=== PATIENT | male | born 1970 | race Two or more races ===

== ENCOUNTER → 2021-01-11 12:59 | Outpatient (BNVA) | payer MEDICAID, SELFPAY | PROVIDERS: PCP Internal Medicine; Referring Provider Internal Medicine; Visit Provider Nurse Practitioner | DX: K76.9 Liver disease, unspecified (principal) | CPT/HCPCS: 99202 ==

== ENCOUNTER 2021-01-25 08:43 | Day surgery (SDC) | payer OTHER, SELFPAY ==
--- NOTE | ~2021-01-25 | US_ITS ---
EXAMINATION: US GUIDED LIVER BIOPSY CLINICAL INFORMATION: Hepatomegaly and multiple liver masses. COMPARISON: None TECHNIQUE: Following explaining ultrasound-guided liver biopsy procedure, benefits and risk, a written consent was obtained. Patient was placed supine on ultrasound stretcher and preliminary ultrasound imaging was obtained through the right upper abdomen. An optimal site was selected along the right subcostal margin anteriorly and marked on the skin. The marked site was cleaned and draped in the usual sterile manner. 1% lidocaine was injected at the puncture site. Through a small skin incision, a 20-gauge guide needle was advanced into the right hepatic lobe subcostally from midline to the right hepatic lobe and 4 pass coaxial Biopty gun was advanced and core biopsy performed through the larger right hepatic lobe lesion. A second small incision was performed slightly laterally and a 2 pass biopsy was performed through a second smaller lesion. Postprocedure, complete hemostasis was achieved at the puncture site. A sterile dressing was applied postprocedure. Conscious sedation was utilized during the exam with patient monitoring by our nurse and the radiologist. FINDINGS: On preliminary ultrasound imaging of the liver, there are multiple hypoechoic nodules visualized. Right hepatic lobe lesions biopsy was performed and tissue collected was sent in an alcohol collection bottle to pathology for further evaluation. There was no immediate bleeding. US/US biopsy liver IMPRESSION: Successful ultrasound-guided right hepatic lobe nodule core biopsy performed subcostally without immediate complications.
[2021-01-25 08:54] VITALS: BMI 30.2
[2021-01-25 12:15] VITALS: BP 121/71; PULSE 74; RESP 16; TEMP 37.7; O2SAT 94
[2021-01-25 12:30] VITALS: BP 120/67; PULSE 66; RESP 18; O2SAT 96
[2021-01-25 13:00] VITALS: BP 106/59; PULSE 66; RESP 18; O2SAT 96
[2021-01-25] MEDS: Lidocaine HCl 1 % MPF 5 ML VIAL 4 ML SUBCUT (13:10)
[2021-01-25 13:30] VITALS: BP 128/83; PULSE 71; RESP 18; O2SAT 98
[2021-01-25 14:30] VITALS: BP 113/65; PULSE 83; RESP 18; O2SAT 98
== END 2021-01-25 14:57 | disposition home or self-care (01) ==
PROVIDERS: Radiology Diagnostic Radiology; PCP Internal Medicine; Visit Provider Internal Medicine
DX: C22.7 Other specified carcinomas of liver (principal); R16.0 Hepatomegaly, not elsewhere classified; I10 Essential (primary) hypertension; R91.1 Solitary pulmonary nodule
CPT/HCPCS: 47000; 76942; 88307; 88341; 88342; 99152; 99153; J2250; J3010

== ENCOUNTER 2021-02-10 08:10 | Day surgery (SDC) | payer OTHER, SELFPAY ==
[2021-02-03 13:41] VITALS: BMI 30.2
--- NOTE | 2021-02-09 10:25 | P.CONAN_ITS ---
Documented by User: Joseline Meza NP 02/09/21 10:25 HPI - Anesthesia Eval Consult details Narrative: 50yo M for Upper Endoscopy and Colonoscopy PMFSH Active Problems Active Problems: All Active Problems (Updated 01/17/21 @ 17:36 by Maxi Berkowtiz MD) Lesion of liver (Acute) Past Medical History Medical History Hypertension Left arm pain Liver masses Pulmonary nodule Surgical History Surgical History History of colonoscopy History of liver biopsy Social History Social History Are you a primary healthcare associate to a significant other at home: No Do you presently have visiting nurse or other home services: No Alcohol intake: never Patient Tobacco Use Status: Never used Tobacco Use of substances other than those prescribed or required for medical reasons: No Have you been hit, kicked, punched, or otherwise hurt by someone within the past year? If so, by whom?: No Are you DNR?: No Advance Directives: No Advance Directives Information Provided: No Advance Directives on File: No Recently lost weight without trying: Yes How much weight loss: 2-13 pounds Eating poorly because of decreased appetite: No Nutrition screen score: 3 Nutrition Risks: No Nutritional Risk Meds Allergies Allergy/AdvReac Type Severity Reaction Status Date / Time bee pollen [bee stings] Allergy Unknown Verified 02/03/21 13:41 Home Medications Medication Instructions Recorded Confirmed Last Taken Type acetaminophen 500 mg tablet 250 mg PO PRN 01/25/21 Unknown History hydrochlorothiazide 25 mg tablet 1 tab PO DAILY 01/25/21 02/03/21 01/25/21 05:30 History lisinopril 5 mg tablet 2 tab PO DAILY 01/25/21 02/03/21 01/25/21 05:30 History Exam Exam Date and Time: February 09, 2021 1025 Height,Weight and Vital Signs: Height 5 ft 10 in Weight 95.7 kg Pertinent Lab Results Pertinent Lab Results: Laboratory Tests 01/20/21 01/20/21 08:56 08:56 WBC 7.6 Hgb 12.7 L Hct 41.8 L Plt Count 260 Sodium 141 Potassium 4.3 Chloride 105 Carbon Dioxide 28 BUN 14 Creatinine 0.80 Assessment and Plan Assessment Anesthesia Assessment: Chart Reviewed Documented by User: Ira Franco MD 02/10/21 08:47 [facility] Past Medical History Medical History Hypertension Left arm pain Liver masses Pulmonary nodule Family History Family history of problems with anesthesia: No Surgical History Surgical History History of colonoscopy History of liver biopsy History of Problems with Anesthesia: No Social History Social History Are you a primary healthcare associate to a significant other at home: No Do you presently have visiting nurse or other home services: No Alcohol intake: never Patient Tobacco Use Status: Never used Tobacco Use of substances other than those prescribed or required for medical reasons: No Have you been hit, kicked, punched, or otherwise hurt by someone within the past year? If so, by whom?: No Are you DNR?: No Advance Directives: No Advance Directives Information Provided: No Advance Directives on File: No Recently lost weight without trying: Yes How much weight loss: 2-13 pounds Eating poorly because of decreased appetite: No Nutrition screen score: 3 Nutrition Risks: No Nutritional Risk Meds Allergies Allergy/AdvReac Type Severity Reaction Status Date / Time bee pollen [bee stings] Allergy Unknown Verified 02/03/21 13:41 Home Medications Medication Instructions Recorded Confirmed Last Taken Type acetaminophen 500 mg tablet 250 mg PO PRN 01/25/21 Unknown History hydrochlorothiazide 25 mg tablet 1 tab PO DAILY 01/25/21 02/03/21 01/25/21 05:30 History lisinopril 5 mg tablet 2 tab PO DAILY 01/25/21 02/03/21 01/25/21 05:30 History Exam Airway Mallampati Class: II TM Dist: >3cm Neck ROM: Full Heart: RRR Lungs: CTA Assessment and Plan Final Anesthetic Review Family History of Problems with Anesthesia: No History of Problems with Anesthesia: No ASA Class: II Final Preanesthetic Review: No Changes in Pt Med Stat, Meds/Allgs Chart Reviewed, Consent Obtained/Reviewed and Anes Risks/Benef Reviewed Patient Risk: Low (M) Procedure Risk: Low Anesthetic Plan Anesthetic Plan: MAC: Disposition: Standard PACU
[2021-02-10 08:31] VITALS: BP 167/102; PULSE 91; RESP 16; TEMP 36.4; O2SAT 97
[2021-02-10] MEDS: Lactated Ringers 1,000 ML 100 ML IVCONT (08:40)
--- NOTE | 2021-02-10 08:41 | P.HPSUR_ITS ---
Pre-Procedural Eval Section A Date of Service: 02/10/21 Section B Chief Complaint: liver lesions looking for primary tumour Relevant Family History (Specify if Yes): No Relevant Social History: None Present Medications: see Short Stay Collaborative assessment Medical History: Significant History (Hypertension Left arm pain Liver masses Pulmonary nodule) History of Previous Operations: Relevant previous surgery/procedure and date(s) (History of colonoscopy History of liver biopsy) Allergies: Allergies Allergy/AdvReac Type Severity Reaction Status Date / Time bee pollen [bee stings] Allergy Unknown Verified 02/03/21 13:41 Review of Systems Sugical H&P ROS: Negative: Constitution, Cardiovascular, Respiratory, Neurological, Psychiatric, Hem-Onc, Allergic/Immunologic, Gastrointestinal, Genitourinary, Musculoskeletal, Integumentary, Endocrine and Eyes/Ear s/Nose/Throat Exam Surgical H&P Exam: Normal: HEENT, Normal: Heart, Normal: Lungs, Normal: Extremities, Normal: Abdomen, Normal: Skin and Normal: Neurological Plan Diagnosis/Plan: Unchanged I have reviewed the history and physical and performed a pertinent physical examination on my patient. No changes have occurred unless specified.
--- NOTE | 2021-02-10 08:45 | PM.OP ---
Brief Operative Note Date of Service: 02/10/21 Pre-op diagnosis: liver lesions looking for GI primary Post-op diagnosis: same Procedure: see op note Surgeon: Lexy Montes De Oca MD Anesthesia: MAC Was an House Furnishings Supervisor used for this Procedure?: No Estimated blood loss (mL): 0 Condition: stable Disposition: PACU
--- NOTE | 2021-02-10 08:46 | P.OP_ITS ---
Operative Note Operative Note Date of Service: 02/10/21 Narrative: Operative Information Procedure Description: EGD, Colonoscopy FLEXIBLE TRANSORAL UPPER GASTROINTESTINAL ENDOSCOPY AND COLONOSCOPY PROCEDURE NOTE UPPER ENDOSCOPY Consent: Indications for the procedure and potential complications of bleeding, perforation, reaction to medications and missed diagnosis were discussed with the patient and informed consent was obtained. Instrument: Olympus GIF H 190 J mid size upper endoscope Monitoring: Vital signs and clinical assessment, continuous EKG monitoring, Pulse oximetry, Carbon Dioxide monitoring and blood pressure monitoring were done throughout the procedure. Procedure: The patient was placed in the left lateral decubitis position and pre-procedure medications were administered and a bite block was placed. The endoscope was inserted into the mouth and advanced under direct vision to the third part of duodenum. A careful inspection was made as the upper endoscope was withdrawn including a retroflexed examination of the proximal stomach; Findings and interventions are described below. Findings: Larynx:normal Esophagus: GE junction at 40 cm, diaphragm hiatus at 40 cm, few nodular polypoid lesions 6-8 mm biopsies taken Stomach: Atrophic gastritis random stomach bx taken. At antrum there was a large polypoid lesion, the base of which was hard to establish, parts of it were snare excised with cold snare and it easily bled disturbing the view. The pylorus was also deformed. Grade 2 flap valve on retroflexed examination of the cardia. Hemospray was used due to bleeding. Duodenum: Proximal bulb close to the pyloric outlet there was a friable mass like lesion, soft, and this was biopsied, possibly an extension of the polypoid leison from the stomach above. Intervention: Biopsies as noted above, snare polpyectomy, hemospray COLONOSCOPY Instrument: Olympus variable stiffness pediatric scope 190L Colonoscopy Monitoring: Vital signs and clinical assessment, continuous EKG monitoring, Pulse oximetry, Carbon Dioxide monitoring and blood pressure monitoring were done throughout the procedure. Colon withdrawal time was 10 minutes. Procedure: The patient was placed in the left lateral decubitis position and pre-procedure medications were administered. After a digital rectal examination of the ano-rectum, the video colonoscope was inserted into the rectum and advanced through the colon to the cecum/TI. The colonoscope was slowly withdrawn in a retrograde panoramic fashion and the colon mucosa was carefully examined including a retroflexed view of the rectum. Findings and interventions are described below. Procedure Difficulty: moderate Findings: Terminal Ileum-normal Cecum: There was edema of the mucosa, but no lesion seen, biopsies were taken. Ascending Colon: normal Transverse Colon -normal Descending Colon:normal Sigmoid Colon: small scattered diverticula Rectum: Retroflexion with moderate sized internal hemorrhoids, grade II Anorectum - internal hemorrhoids seen at anal verge Colon preparation: Kimball Bowel Preparation Scale Right colon; 3 Transverse colon: 3 Left colon; 3 (0 = Unprepared colon segment with mucosa not seen due to solid stool that cannot be cleared. 1 = Portion of mucosa of the colon segment seen, but other areas of the colon segment not well seen due to staining, residual stool and/or opaque liquid. 2 = Minor amount of residual staining, small fragments of stool and/or opaque liquid, but mucosa of colon segment seen well. 3 = Entire mucosa of colon segment seen well with no residual staining, small fragments of stool or opaque liquid) Impression and Post Procedure Diagnosis: Endoscopy Findings: gastric polyp and duodenal mass atrophic gastritis GEj nodular polypoid lesions Colonoscopy Findings: internal hemorrhoids diverticulosis cecal edema Plan: Await Pathology results Repeat Colonoscopy in 10 years or earlier if clinically indicated High fiber diet leaflet avoid straining at stool, epsom salts and sitz bath, anusol supps or cream suspect stomach may be primary site for the liver mets, will await path, also may have H pylori as etiology Above findings were reviewed with the patient and relevant handouts were provided if indicated.
[2021-02-10 09:57] VITALS: BP 120/76; PULSE 82; RESP 16; TEMP 36.4; O2SAT 100
[2021-02-10 10:11] VITALS: BP 117/81; PULSE 65; RESP 16; O2SAT 100
[2021-02-10 10:28] VITALS: BP 147/95; PULSE 72; RESP 16; TEMP 36.8; O2SAT 100
== END 2021-02-10 11:11 | disposition home or self-care (01) ==
PROVIDERS: PCP Internal Medicine; Visit Provider Internal Medicine Gastroenterology
PROC: (CPT 45380; principal; 2021-02-10 09:20)
DX: Z12.11 Encounter for screening for malignant neoplasm of colon (principal); K57.30 Diverticulosis of large intestine without perforation or abscess without bleeding; K64.1 Second degree hemorrhoids; K76.9 Liver disease, unspecified; K63.89 Other specified diseases of intestine; K29.40 Chronic atrophic gastritis without bleeding; K31.7 Polyp of stomach and duodenum; D13.2 Benign neoplasm of duodenum; K52.9 Noninfective gastroenteritis and colitis, unspecified; K44.9 Diaphragmatic hernia without obstruction or gangrene; I10 Essential (primary) hypertension; R91.1 Solitary pulmonary nodule; Z79.899 Other long term (current) drug therapy; R16.0 Hepatomegaly, not elsewhere classified
CPT/HCPCS: 45380; 43251; 43239; 88305; 88342

== ENCOUNTER 2021-02-24 10:20 | Day surgery (SDC) | payer OTHER, SELFPAY ==
--- NOTE | 2021-02-23 12:45 | HO.ANESPROP2 ---
Documented by User: Joseline Meza NP 02/23/21 12:46 HPI - Anesthesia Eval Consult details Narrative: 51yo M for Upper Endoscopy s/p EGD and [place] 01/2021 with MAC PMFSH Active Problems Active Problems: All Active Problems (Updated 01/17/21 @ 17:36 by Maxi Berkowitz MD) Lesion of liver (Acute) Past Medical History Medical History Hypertension Left arm pain Liver masses Pulmonary nodule Family History Family history of problems with anesthesia: No Surgical History Surgical History History of colonoscopy History of liver biopsy History of Problems with Anesthesia: No Social History Social History Are you a primary child care team lead to a significant other at home: No Do you presently have visiting nurse or other home services: No Alcohol intake: never Patient Tobacco Use Status: Never used Tobacco Use of substances other than those prescribed or required for medical reasons: No Are you DNR?: No Advance Directives: No Advance Directives Information Provided: Yes Meds Allergies Allergy/AdvReac Type Severity Reaction Status Date / Time bee pollen [bee stings] Allergy Unknown Verified 02/03/21 13:41 Home Medications Medication Instructions Recorded Confirmed Last Taken Type acetaminophen 500 mg tablet 250 mg PO PRN 01/25/21 Unknown History hydrochlorothiazide 25 mg tablet 1 tab PO DAILY 01/25/21 02/03/21 01/25/21 05:30 History lisinopril 5 mg tablet 2 tab PO DAILY 01/25/21 02/03/21 01/25/21 05:30 History Exam Exam Date and Time: February 23, 2021 1245 Pertinent Lab Results Pertinent Lab Results: Laboratory Tests ? 01/20/21 01/20/21 ? 08:56 08:56 WBC ?7.6 ? Hgb ?12.7 L ? Hct ?41.8 L ? Plt Count ?260 ? Sodium ? ?141 Potassium ? ?4.3 Chloride ? ?105 Carbon Dioxide ? ?28 BUN ? ?14 Creatinine ? ?0.80 Assessment and Plan Assessment Anesthesia Assessment: Chart Reviewed Final Anesthetic Review Family History of Problems with Anesthesia: No History of Problems with Anesthesia: No Documented by User: Tequila Vallejo MD 02/24/21 11:25 PMFSH Past Medical History Medical History Hypertension Left arm pain Liver masses Pulmonary nodule Surgical History Surgical History History of colonoscopy History of liver biopsy Social History Social History Are you a primary child care team lead to a significant other at home: No Do you presently have visiting nurse or other home services: No Alcohol intake: never Patient Tobacco Use Status: Never used Tobacco Use of substances other than those prescribed or required for medical reasons: No Are you DNR?: No Advance Directives: No Advance Directives Information Provided: Yes Meds Allergies Allergy/AdvReac Type Severity Reaction Status Date / Time bee pollen [bee stings] Allergy Unknown Verified 02/03/21 13:41 Home Medications Medication Instructions Recorded Confirmed Last Taken Type acetaminophen 500 mg tablet 250 mg PO PRN 01/25/21 Unknown History hydrochlorothiazide 25 mg tablet 1 tab PO DAILY 01/25/21 02/03/21 01/25/21 05:30 History lisinopril 5 mg tablet 2 tab PO DAILY 01/25/21 02/03/21 01/25/21 05:30 History Exam Airway Mallampati Class: III TM Dist: >3cm Neck ROM: Full Loose/Missing/Broken Teeth: No Heart: RRR Lungs: CTA Assessment and Plan Assessment Anesthesia Assessment: Anesthesia Plan Discussed and Chart Reviewed Final Anesthetic Review NPO: Yes ASA Class: II Final Preanesthetic Review: Meds/Allgs Chart Reviewed, Consent Obtained/Reviewed and Anes Risks/Benef Reviewed Patient Risk: Low Procedure Risk: Intermediate Anesthetic Plan Anesthetic Plan: MAC: Disposition: Standard PACU
[2021-02-24 11:10] VITALS: BP 125/85; PULSE 80; RESP 18; TEMP 36.8; O2SAT 98; BMI 29.1
[2021-02-24] MEDS: Lactated Ringers 1,000 ML 100 ML IVCONT (11:19)
--- NOTE | 2021-02-24 11:19 | P.HPSUR_ITS ---
Pre-Procedural Eval Section A Date of Service: 02/24/21 Section B Chief Complaint: malignant neoplasm of duoderm Relevant Family History (Specify if Yes): No Relevant Social History: None Present Medications: see Short Stay Collaborative assessment Medical History: Significant History (Hypertension Left arm pain Liver masses Pulmonary nodule) History of Previous Operations: Relevant previous surgery/procedure and date(s) (History of colonoscopy History of liver biopsy) Allergies: Allergies Allergy/AdvReac Type Severity Reaction Status Date / Time bee pollen [bee stings] Allergy Unknown Verified 02/03/21 13:41 Review of Systems Sugical H&P ROS: Negative: Constitution, Cardiovascular, Respiratory, Neurological, Psychiatric, Hem-Onc, Allergic/Immunologic, Gastrointestinal, Genitourinary, Musculoskeletal, Integumentary, Endocrine and Eyes/Ears/Nose/Thro at Exam Surgical H&P Exam: Normal: HEENT, Normal: Heart, Normal: Lungs, Normal: Extremities, Normal: Abdomen, Normal: Skin and Normal: Neurological Plan Diagnosis/Plan: Unchanged I have reviewed the history and physical and performed a pertinent physical examination on my patient. No changes have occurred unless specified. Repeat EGD for re assessment of duodenum and more biopsies./
--- NOTE | 2021-02-24 11:20 | PM.OP ---
Brief Operative Note Date of Service: 02/24/21 Pre-op diagnosis: duodenal mass Post-op diagnosis: same Procedure: see op note Surgeon: Lexy Montes De Oca MD Anesthesia: MAC Was an Head End Desizing Machine Operator used for this Procedure?: No Estimated blood loss (mL): 0 Condition: stable Disposition: PACU
--- NOTE | 2021-02-24 11:20 | W.PM.OPN ---
Operative Note Operative Note Date of Service: 02/24/21 Narrative: Procedure Description: EGD FLEXIBLE TRANSORAL UPPER GASTROINTESTINAL ENDOSCOPY UPPER ENDOSCOPY Consent: Indications for the procedure and potential complications of bleeding, perforation, reaction to medications and missed diagnosis were discussed with the patient and informed consent was obtained. Instrument: Olympus GIF H 190 J mid size upper endoscope Monitoring: Vital signs and clinical assessment, continuous EKG monitoring, Pulse oximetry, Carbon Dioxide monitoring and blood pressure monitoring were done throughout the procedure. Procedure: The patient was placed in the left lateral decubitis position and pre-procedure medications were administered and a bite block was placed. The endoscope was inserted into the mouth and advanced under direct vision to the third part of duodenum. A careful inspection was made as the upper endoscope was withdrawn including a retroflexed examination of the proximal stomach; Findings and interventions are described below. Findings: Larynx:normal Esophagus: GE junction at 40? cm, diaphragm hiatus at 40 cm, Stomach: Atrophic gastritis. Grade 2 flap valve on retroflexed examination of the cardia. Duodenum: Proximal bulb close to the pyloric outlet there was a friable mass like lesion which occupied about 1/3rd of the bulb. This was better visualized thanks to stabilization with the distal attachment compared to the last time. Multiple biopsy samples were obtained Intervention: Biopsies as noted above Impression/Findings: duodenal mass PLAN: await bx results treat h pylori, mahnaz get his and kids checked for h pylori and treat if pos
[2021-02-24 11:55] VITALS: BP 103/50; PULSE 74; RESP 18; TEMP 37.8; O2SAT 98
[2021-02-24 12:10] VITALS: BP 103/50; PULSE 75; RESP 18; O2SAT 98
[2021-02-24 12:25] VITALS: BP 110/65; PULSE 76; RESP 18; O2SAT 98
[2021-02-24 12:54] VITALS: BP 130/82; PULSE 83; RESP 18; O2SAT 100
[2021-02-24 12:57] VITALS: TEMP 37.2
== END 2021-02-24 13:15 | disposition home or self-care (01) ==
PROVIDERS: PCP Internal Medicine; Visit Provider Internal Medicine Gastroenterology
PROC: 0DJ08ZZ Inspection of Upper Intestinal Tract, Via Natural or Artificial Opening Endoscopic (ICD-10-PCS; CPT 43235; principal; 2021-02-24 11:30)
DX: C17.0 Malignant neoplasm of duodenum (principal); K29.40 Chronic atrophic gastritis without bleeding; R10.12 Left upper quadrant pain; K44.9 Diaphragmatic hernia without obstruction or gangrene; K76.9 Liver disease, unspecified; R16.0 Hepatomegaly, not elsewhere classified; I10 Essential (primary) hypertension; R91.1 Solitary pulmonary nodule; Z79.899 Other long term (current) drug therapy
CPT/HCPCS: 43239; 88305; 88341; 88342

== ENCOUNTER 2021-03-09 10:57 | Outpatient (REF) | payer OTHER, SELFPAY ==
--- NOTE | ~2021-03-09 | US_ITS ---
EXAMINATION: US VENOUS ULTRASOUND WITH DOPPLER LOWER EXTREMITY, LEFT CLINICAL INFORMATION: Pain COMPARISON: None TECHNIQUE: Ultrasound of the deep veins is performed from the hip to the calf with compression sonography and color and pulse Doppler assessment. Spectral analysis with color-flow imaging is performed. FINDINGS: There is normal venous compression and respiratory variation and augmented flow. The visualized common femoral vein, superficial femoral vein, profunda femoral vein, popliteal vein, and the the popliteal vein. There is occlusive thrombus seen in the peroneal veins. There is no significant popliteal fossa cyst. US/US venous duplex LE LT IMPRESSION: Left peroneal vein DVT in the calf.
== END 2021-03-09 10:58 | disposition home or self-care (01) ==
LOC: HO.US 10:57
PROVIDERS: PCP Internal Medicine; Visit Provider Internal Medicine Medical Oncology
DX: C17.0 Malignant neoplasm of duodenum (principal)
CPT/HCPCS: 93971

== ENCOUNTER 2021-03-15 10:25 | Outpatient (REF) | payer OTHER, SELFPAY ==
[2021-03-16 14:58] LABS: H Pylori Breath Test Negative (Negative)
== END 2021-03-15 10:26 | disposition home or self-care (01) ==
LOC: HO.LAB 10:25
PROVIDERS: PCP Internal Medicine; Referring Provider Internal Medicine; Visit Provider Internal Medicine Gastroenterology
DX: C17.0 Malignant neoplasm of duodenum (principal); K76.9 Liver disease, unspecified
CPT/HCPCS: 36415; 83013; 99211

== ENCOUNTER 2021-05-18 06:27 | Outpatient (REF) | payer OTHER, SELFPAY ==
--- NOTE | ~2021-05-18 | CT_ITS ---
EXAMINATION: CT CHEST, ABDOMEN AND PELVIS WITH CONTRAST. 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 COMPARISON: None TECHNIQUE: 5 mm thin axial and reformatted 3 mm thin sagittal and coronal images of chest, abdomen and pelvis were obtained following IV 85 mL Omnipaque 350. DLP: 702 mGy-cm. FINDINGS: CHEST: LUNGS: The lungs are well-expanded and clear of acute pneumonic consolidation. There are no pulmonary nodules, mass or ground-glass density. MEDIASTINUM: The thyroid lobes are symmetrical and normal. The central trachea and the bronchi are widely patent. Heart size and the great vessels are of normal caliber. No abnormal size lymph nodes seen. There is no pericardial effusion. Trace coronary artery calcifications are present. PLEURA: There is no pleural thickening, calcification or effusion. AXILLA: There are no abnormal size axillary lymph nodes seen. The chest wall is unremarkable. OSSEOUS STRUCTURES: There is no lytic or sclerotic process seen. ABDOMEN AND PELVIS: LIVER, GALLBLADDER AND BILIARY DUCTS: The liver is mildly enlarged measuring 21 cm. There are multiple hypodense liver lesions seen scattered throughout the liver. The largest lesion is in the inferior segment of the right lower lobe, the lesion measures approximately 6.5 x 5.6 cm. No intrahepatic ductal dilatation is seen. No radiopaque gallstones are seen. There is non-specific mild gallbladder wall thickening. There are small periportal lymph nodes. SPLEEN: There is mild splenomegaly measuring 14 cm. No focal lesion is seen. PANCREAS: Unremarkable. ADRENAL GLANDS: Unremarkable. KIDNEYS AND URETERS: Both kidneys are of normal size, shape and position. There is a 2.9 x 3.4 cm cyst of the upper pole of the left kidney. The right kidney is unremarkable. LYMPHOVASCULAR STRUCTURES: The abdominal aorta appears within normal limits in its course and caliber. There are numerous small shotty aortocaval lymph nodes seen. The largest aortocaval lymph node measures 1.1 cm and 0.4 cm. GI TRACT: There is scattered stool and gas seen throughout the colon. There is oral contrast seen within the stomach, proximal and mid small bowel loops. There is no distention. There is a moderate filling defect and circumferential narrowing involving the second segment of the duodenum suggestive and suspicious of the mass. However, no proximal bowel obstruction is seen. ABDOMINAL WALL: Unremarkable. PELVIS: The urinary bladder is unremarkable. The prostate gland is normal. No free fluid is seen. There is mild non-specific mural thickening involving the rectum. No abnormal pelvic or inguinal lymph nodes are seen. OSSEOUS STRUCTURES: No lytic or sclerotic process is seen. CT/CT abdomen pelvis w con IMPRESSION: Annular mural thickening involving the second segment of the duodenum with mild prominence of periportal lymph nodes and numerous liver metastases. Mild constipation. No abnormality seen in the lungs.
[2021-05-18] MEDS: Barium Sulfate Oral (Berry) 450 ML ORAL.SUSP 900 ML PO (09:10)
[2021-05-18] MEDS: iohexoL 350 MG/ML 100 ML INFUS..BTL IV (09:10)
== END 2021-05-18 06:28 | disposition home or self-care (01) ==
LOC: HO.CT 06:27
PROVIDERS: Visit Provider Internal Medicine Medical Oncology
DX: C17.0 Malignant neoplasm of duodenum (principal)
CPT/HCPCS: 71260; 74177; Q9967

== ENCOUNTER → 2021-05-20 12:14 | Outpatient (BNVA) | payer OTHER, SELFPAY | PROVIDERS: PCP Internal Medicine; Visit Provider Internal Medicine Gastroenterology | DX: K59.00 Constipation, unspecified (principal); Z79.899 Other long term (current) drug therapy | CPT/HCPCS: 99212 ==

== ENCOUNTER 2021-05-31 11:40 | Day surgery (SDC) | payer OTHER, SELFPAY ==
--- NOTE | 2021-05-30 11:33 | P.CONAN_ITS ---
Documented by User: Joseline Meza NP 05/30/21 11:41 HPI - Anesthesia Eval Consult details Narrative: 51yo M for Upper Endoscopy with hemo spray current tx for metastatic duodenal carcinoma Xarelto for LLE DVT Daily rx opioids PMFSH Active Problems Active Problems: All Active Problems (Updated 03/09/21 @ 14:38 by Adelaide Dominguez MD) DVT (deep venous thrombosis) (Acute) Carcinoma of duodenum (Acute) Lesion of liver (Acute) Past Medical History Medical History (Updated 05/30/21 @ 11:49 by Jennifer Del Toro RN) Duodenal adenocarcinoma Hypertension Left arm pain Liver masses Pulmonary nodule Family History Family history of problems with anesthesia: No Surgical History Surgical History (Updated 05/26/21 @ 12:11 by Maxi Berkowitz MD) History of colonoscopy History of esophagogastroduodenoscopy (EGD) History of liver biopsy History of Problems with Anesthesia: No Social History Social History Are you a primary career and transition teacher to a significant other at home: No Do you presently have visiting nurse or other home services: No Alcohol intake: never Patient Tobacco Use Status: Never used Tobacco Meds Allergies Allergy/AdvReac Type Severity Reaction Status Date / Time bee pollen [bee stings] Allergy Unknown Verified 05/20/21 12:46 Home Medications Medication Instructions Recorded Confirmed Last Taken Type acetaminophen 500 mg tablet 250 mg PO TID PRN 01/25/21 05/26/21 Unknown History hydrochlorothiazide 25 mg tablet 1 tab PO DAILY 01/25/21 05/26/21 05/31/21 History losartan 25 mg tablet 25 mg PO DAILY 03/04/21 05/26/21 05/31/21 History omeprazole 20 mg tablet,delayed 20 mg PO DAILY 05/20/21 05/26/21 Unknown History release Exam Exam Date and Time: May 30, 2021 1133 Pertinent Lab Results Pertinent Lab Results: Laboratory Tests 05/25/21 05/25/21 07:51 07:51 WBC 3.7 L Hgb 7.8 L Hct 24.7 L Plt Count 250 D Sodium 136 Potassium 4.0 Chloride 104 Carbon Dioxide 25 BUN 15 Creatinine 0.72 Assessment and Plan Assessment Anesthesia Assessment: Chart Reviewed Final Anesthetic Review Family History of Problems with Anesthesia: No History of Problems with Anesthesia: No Documented by User: Alexander Hernandez MD 05/31/21 17:08 HPI - Anesthesia Eval Consult details Narrative: 51yo M for Upper Endoscopy with hemo spray current tx for metastatic duodenal carcinoma, chemo 15 days ago Xarelto for LLE DVT , last dose yesterday AM . Daily rx opioids PMFSH Past Medical History Medical History (Updated 05/30/21 @ 11:49 by Jennifer Del Toro RN) Duodenal adenocarcinoma Hypertension Left arm pain Liver masses Pulmonary nodule Surgical History Surgical History (Updated 05/26/21 @ 12:11 by Maxi Berkowitz MD) History of colonoscopy History of esophagogastroduodenoscopy (EGD) History of liver biopsy Social History Social History Are you a primary career and transition teacher to a significant other at home: No Do you presently have visiting nurse or other home services: No Alcohol intake: never Patient Tobacco Use Status: Never used Tobacco Meds Allergies Allergy/AdvReac Type Severity Reaction Status Date / Time bee pollen [bee stings] Allergy Unknown Verified 05/20/21 12:46 Home Medications Medication Instructions Recorded Confirmed Last Taken Type acetaminophen 500 mg tablet 250 mg PO TID PRN 01/25/21 05/26/21 Unknown History hydrochlorothiazide 25 mg tablet 1 tab PO DAILY 01/25/21 05/26/21 05/31/21 History losartan 25 mg tablet 25 mg PO DAILY 03/04/21 05/26/21 05/31/21 History omeprazole 20 mg tablet,delayed 20 mg PO DAILY 05/20/21 05/26/21 Unknown History release Exam Airway Mallampati Class: II TM Dist: >3cm Neck ROM: Full Loose/Missing/Broken Teeth: Yes (Chipped ,missing , poor dentation ) Heart: S1, S2 Lungs: b/l breath sounds Assessment and Plan Assessment Anesthesia Assessment: Anesthesia Plan Discussed Final Anesthetic Review NPO: Yes ASA Class: III Final Preanesthetic Review: Meds/Allgs Chart Reviewed, Consent Obtained/Reviewed and Anes Risks/Benef Reviewed Patient Risk: High Procedure Risk: Intermediate Anesthetic Plan Anesthetic Plan: MAC: Disposition: Standard PACU
--- NOTE | 2021-05-31 11:50 | MHC.SHP ---
Pre-Procedural Eval Section A Date of Service: 05/31/21 Section B Chief Complaint: anemia Details of Present Illness: duodenal cancer Relevant Family History (Specify if Yes): No Relevant Social History: None Present Medications: see Short Stay Collaborative assessment Medical History: Significant History (Hypertension Left arm pain Liver masses Pulmonary nodule) History of Previous Operations: Relevant previous surgery/procedure and date(s) (History of colonoscopy History of esophagogastroduodenoscopy (EGD) History of liver biopsy) Allergies: Allergies Allergy/AdvReac Type Severity Reaction Status Date / Time bee pollen [bee stings] Allergy Unknown Verified 05/20/21 12:46 Review of Systems Sugical H&P ROS: Negative: Constitution, Cardiovascular, Respiratory, Neurological, Psychiatric, Hem-Onc, Allergic/Immunologic, Gastrointestinal, Genitourinary, Musculoskeletal, Integumentary, Endocrine and Eyes/Ears/Nose/Throat Exam Surgical H&P Exam: Normal: HEENT, Normal: Heart, Normal: Lungs, Normal: Extremities, Normal: Abdomen, Normal: Skin and Normal: Neurological Plan Diagnosis/Plan: Unchanged I have reviewed the history and physical and performed a pertinent physical examination on my patient. No changes have occurred unless specified.
[2021-05-31 11:52] VITALS: BMI 30.5
[2021-05-31 12:07] VITALS: BP 140/87; PULSE 77; RESP 16; TEMP 36.9; O2SAT 97
--- NOTE | 2021-05-31 12:07 | PC.NURSE ---
MD ALEJANDRA AWARE OF PATIENTS OUT PATIENT LAB RESULTS. MD GILLESPIE AWARE WELL .NO NEED FOR A BLOOD TRANSFUSION.
[2021-05-31] MEDS: Lactated Ringers 1,000 ML 100 ML IVCONT (12:21)
--- NOTE | 2021-05-31 13:03 | PC.NURSE ---
TYPE AND SCREEN NEEDED. CALLED FOR LAB.
--- NOTE | 2021-05-31 13:30 | P.BOP_ITS ---
Brief Operative Note Date of Service: 05/31/21 Pre-op diagnosis: anemia Post-op diagnosis: same Procedure: see op note Surgeon: Lexy Montes De Oca MD Anesthesia: MAC Was an Sheet Metal Superintendent used for this Procedure?: No Estimated blood loss (mL): 0 Condition: stable Disposition: PACU
--- NOTE | 2021-05-31 13:31 | W.PM.OPN ---
Operative Note Operative Note Date of Service: 05/31/21 Narrative: Procedure Description: EGD Indication: anemia Anesthesia: MAC FLEXIBLE TRANSORAL UPPER GASTROINTESTINAL ENDOSCOPY UPPER ENDOSCOPY Consent: Indications for the procedure and potential complications of bleeding, perforation, reaction to medications and missed diagnosis were discussed with the patient and informed consent was obtained. Instrument: Olympus GIF H 190 J mid size upper endoscope Monitoring: Vital signs and clinical assessment, continuous EKG monitoring, Pulse oximetry, Carbon Dioxide monitoring and blood pressure monitoring were done throughout the procedure. Procedure: The patient was placed in the left lateral decubitis position and pre-procedure medications were administered and a bite block was placed. The endoscope was inserted into the mouth and advanced under direct vision to the third part of duodenum. A careful inspection was made as the upper endoscope was withdrawn including a retroflexed examination of the proximal stomach; Findings and interventions are described below. Findings: Larynx:normal Esophagus: GE junction at 40 cm, diaphragm hiatus at 40 cm, no varices or esophagitis. Stomach: Normal mucosa. Grade 2 flap valve on retroflexed examination of the cardia. Duodenum: Mass on posterior wall of duodenal bulb noted, occupying about 1/2 of the circumference. The mass was oozing with some blood around the edges of the mass. A clip was applied for marking purposes in case of IR embolization in the future. The mass was sprayed with 4 cc of epinephrine and then hemospray was liberally applied. Intervention: hemospray and epinephrine spray application, clip placement Impression/Findings: duodenal mass, oozing PLAN: NPO for next 4-6 hours, then can have clears ok to resume anti coagulation tomorrow If ongoing blood loss then can consider referral to [facility] for IR embolization of the area.
[2021-05-31 13:55] VITALS: BP 123/74; PULSE 83; RESP 16; TEMP 37.2; O2SAT 98
[2021-05-31 14:10] VITALS: BP 122/74; PULSE 88; RESP 16; O2SAT 98
[2021-05-31 14:25] VITALS: BP 128/78; PULSE 86; RESP 15; TEMP 36.2; O2SAT 98
== END 2021-05-31 15:05 | disposition home or self-care (01) ==
PROVIDERS: PCP Internal Medicine; Visit Provider Internal Medicine Gastroenterology
PROC: 0DJ08ZZ Inspection of Upper Intestinal Tract, Via Natural or Artificial Opening Endoscopic (ICD-10-PCS; CPT 43235; principal; 2021-05-31 12:50)
DX: C17.0 Malignant neoplasm of duodenum (principal); K31.82 Dieulafoy lesion (hemorrhagic) of stomach and duodenum; D64.9 Anemia, unspecified; I10 Essential (primary) hypertension; R16.0 Hepatomegaly, not elsewhere classified; R91.1 Solitary pulmonary nodule; K44.9 Diaphragmatic hernia without obstruction or gangrene
CPT/HCPCS: 43255; 86850; 86900; 86901; J0171; J3010

== ENCOUNTER 2021-06-15 07:32 | Outpatient (REF) | payer OTHER, SELFPAY ==
[2021-06-15 08:03] LABS: MANUAL DIFF FLAG NO
[2021-06-15 08:07] LABS: Basophils Percent Auto 0.4 % (0-2); Eosinophils Absolute Auto 0.1 X10*3/uL (0.0-0.4); Eosinophils Percent Auto 1.5 % (0-4); Hemoglobin 7.5 g/dl (14.0-18.0); Imm Gran Abs Auto 0.01 X10*3/uL (0.00-0.03); Imm Gran Pct Auto 0.2 % (0.0-0.4); Lymphocytes Absolute Auto 1.4 X10*3/uL (1.2-4.9); Lymphocytes Percent Auto 29.7 % (20-40); Mean Corpuscular HGB Conc 31.3 g/dl (31.0-36.0); Mean Corpuscular Hemoglobin 26.5 pg (27.0-33.0); Mean Corpuscular Volume 84.8 fL (80.0-98.0); Mean Platelet Volume 10.3 fL (9.4-12.4); Monocytes Absolute Auto 0.5 X10*3/uL (0.1-1.2); Neutrophils Absolute Auto 2.6 x10*3/uL (2.0-8.3); Neutrophils Percent Auto 57.2 % (45-73); Platelet Count 222 X10*3/uL (160-400); Red Blood Count 2.83 X10*6/uL (4.60-5.80); Red Cell Distribution Width 20.2 % (11.0-16.0); White Blood Count 4.6 X10*3/uL (4.8-10.8)
[2021-06-15 09:07] LABS: Alanine Aminotransferase 57 U/L (0-40); Albumin Level 3.6 g/dL (3.5-5.0); Alkaline Phosphatase 198 U/L (39-117); Anion Gap 10 (12-20); Aspartate Amino Transferase 69 U/L (5-37); Bilirubin Total 0.7 mg/dL (0.0-1.0); Blood Urea Nitrogen 15 mg/dL (9-16); Calcium 8.9 mg/dL (8.4-10.2); Carbon Dioxide 26 mmol/L (22-29); Chloride 106 mmol/L (96-108); Estimated Glomerular Filt Rate > 60; Glucose Random 147 mg/dL (60-115); Potassium 3.9 mmol/L (3.3-5.1); Sodium 138 mmol/L (135-145); Total Protein 6.2 g/dL (6.5-8.0)
== END 2021-06-15 07:33 | disposition home or self-care (01) ==
LOC: HO.LAB 07:32
PROVIDERS: PCP Internal Medicine; Visit Provider Internal Medicine Medical Oncology
DX: C17.0 Malignant neoplasm of duodenum (principal)
CPT/HCPCS: 36415; 80053; 85025; 86850; 86900; 86901

== ENCOUNTER 2021-06-22 07:29 | Outpatient (REF) | payer OTHER, SELFPAY ==
[2021-06-22 07:48] LABS: MANUAL DIFF FLAG NO
[2021-06-22 07:51] LABS: Basophils Percent Auto 0.2 % (0-2); Eosinophils Absolute Auto 0.1 X10*3/uL (0.0-0.4); Eosinophils Percent Auto 1.3 % (0-4); Hematocrit 29.2 % (42.0-52.0); Hemoglobin 9.2 g/dl (14.0-18.0); Imm Gran Abs Auto 0.02 X10*3/uL (0.00-0.03); Imm Gran Pct Auto 0.3 % (0.0-0.4); Lymphocytes Absolute Auto 1.4 X10*3/uL (1.2-4.9); Lymphocytes Percent Auto 22.5 % (20-40); Mean Corpuscular HGB Conc 31.5 g/dl (31.0-36.0); Mean Corpuscular Hemoglobin 27.5 pg (27.0-33.0); Mean Corpuscular Volume 87.2 fL (80.0-98.0); Mean Platelet Volume 9.5 fL (9.4-12.4); Monocytes Absolute Auto 0.7 X10*3/uL (0.1-1.2); Monocytes Percent Auto 10.7 % (2-11); Platelet Count 238 X10*3/uL (160-400); Red Blood Count 3.35 X10*6/uL (4.60-5.80); Red Cell Distribution Width 21.9 % (11.0-16.0); White Blood Count 6.1 X10*3/uL (4.8-10.8)
[2021-06-22 08:11] LABS: Alanine Aminotransferase 48 U/L (0-40); Albumin Level 3.8 g/dL (3.5-5.0); Alkaline Phosphatase 174 U/L (39-117); Anion Gap 11 (12-20); Aspartate Amino Transferase 61 U/L (5-37); Bilirubin Total 0.6 mg/dL (0.0-1.0); Blood Urea Nitrogen 14 mg/dL (9-16); Carbon Dioxide 26 mmol/L (22-29); Chloride 104 mmol/L (96-108); Estimated Glomerular Filt Rate > 60; Glucose Random 140 mg/dL (60-115); Potassium 3.9 mmol/L (3.3-5.1); Sodium 137 mmol/L (135-145); Total Protein 6.6 g/dL (6.5-8.0)
== END 2021-06-22 07:30 | disposition home or self-care (01) ==
LOC: HO.LAB 07:29
PROVIDERS: PCP Internal Medicine; Visit Provider Internal Medicine Medical Oncology
DX: C17.0 Malignant neoplasm of duodenum (principal)
CPT/HCPCS: 36415; 80053; 85025

== ENCOUNTER → 2021-06-27 14:39 | Outpatient (BNVA) | payer OTHER, SELFPAY | PROVIDERS: PCP Internal Medicine; Referring Provider Internal Medicine; Visit Provider Internal Medicine Gastroenterology | DX: K92.1 Melena (principal); Z79.899 Other long term (current) drug therapy | CPT/HCPCS: 99212 ==

== ENCOUNTER 2021-06-29 07:29 | Outpatient (REF) | payer OTHER, SELFPAY ==
[2021-06-29 07:47] LABS: MANUAL DIFF FLAG NO
[2021-06-29 08:41] LABS: Appearance Urine CLEAR; Color Urine YELLOW; Glucose Urine UA NEG (NEG); Leukocyte Esterase Urine NEG (NEG); Nitrite Urine NEG (NEG); PH 5.5 (5.0-8.0); Specific Gravity - Urine >= 1.030 (1.005-1.025); Urine Blood NEG (NEG); Urine Ketones NEG (NEG); Urine Protein NEG (NEG-TRACE)
[2021-06-29 08:52] LABS: Basophils Percent Auto 0.4 % (0-2); Eosinophils Absolute Auto 0.1 X10*3/uL (0.0-0.4); Eosinophils Percent Auto 1.1 % (0-4); Hematocrit 25.5 % (42.0-52.0); Hemoglobin 7.9 g/dl (14.0-18.0); Imm Gran Abs Auto 0.01 X10*3/uL (0.00-0.03); Imm Gran Pct Auto 0.2 % (0.0-0.4); Lymphocytes Absolute Auto 1.2 X10*3/uL (1.2-4.9); Lymphocytes Percent Auto 24.7 % (20-40); Mean Corpuscular Hemoglobin 27.5 pg (27.0-33.0); Mean Corpuscular Volume 88.9 fL (80.0-98.0); Mean Platelet Volume 9.6 fL (9.4-12.4); Monocytes Absolute Auto 0.7 X10*3/uL (0.1-1.2); Monocytes Percent Auto 15.9 % (2-11); Neutrophils Absolute Auto 2.7 x10*3/uL (2.0-8.3); Neutrophils Percent Auto 57.7 % (45-73); Platelet Count 240 X10*3/uL (160-400); Red Blood Count 2.87 X10*6/uL (4.60-5.80); Red Cell Distribution Width 24.4 % (11.0-16.0); White Blood Count 4.7 X10*3/uL (4.8-10.8)
[2021-06-29 08:55] LABS: Alanine Aminotransferase 52 U/L (0-40); Albumin Level 3.7 g/dL (3.5-5.0); Alkaline Phosphatase 138 U/L (39-117); Anion Gap 14 (12-20); Aspartate Amino Transferase 67 U/L (5-37); Bilirubin Total 0.3 mg/dL (0.0-1.0); Blood Urea Nitrogen 17 mg/dL (9-16); Calcium 9.2 mg/dL (8.4-10.2); Carbon Dioxide 24 mmol/L (22-29); Chloride 106 mmol/L (96-108); Estimated Glomerular Filt Rate > 60; Glucose Random 131 mg/dL (60-115); Potassium 3.9 mmol/L (3.3-5.1); Sodium 140 mmol/L (135-145); Total Protein 6.2 g/dL (6.5-8.0)
== END 2021-06-29 07:30 | disposition home or self-care (01) ==
LOC: HO.LAB 07:29
PROVIDERS: PCP Internal Medicine; Visit Provider Internal Medicine Medical Oncology
DX: C17.0 Malignant neoplasm of duodenum (principal)
CPT/HCPCS: 36415; 80053; 81003; 85025

== ENCOUNTER 2021-07-06 07:27 | Outpatient (REF) | payer OTHER, SELFPAY ==
[2021-07-06 07:52] LABS: MANUAL DIFF FLAG NO
[2021-07-06 07:55] LABS: Basophils Percent Auto 0.4 % (0-2); Eosinophils Percent Auto 0.8 % (0-4); Hemoglobin 8.6 g/dl (14.0-18.0); Imm Gran Abs Auto 0.02 X10*3/uL (0.00-0.03); Imm Gran Pct Auto 0.4 % (0.0-0.4); Lymphocytes Absolute Auto 1.2 X10*3/uL (1.2-4.9); Lymphocytes Percent Auto 25.5 % (20-40); Mean Corpuscular HGB Conc 31.9 g/dl (31.0-36.0); Mean Corpuscular Hemoglobin 27.2 pg (27.0-33.0); Mean Corpuscular Volume 85.4 fL (80.0-98.0); Mean Platelet Volume 10.2 fL (9.4-12.4); Monocytes Absolute Auto 0.7 X10*3/uL (0.1-1.2); Monocytes Percent Auto 14.6 % (2-11); Neutrophils Absolute Auto 2.8 x10*3/uL (2.0-8.3); Neutrophils Percent Auto 58.3 % (45-73); Platelet Count 136 X10*3/uL (160-400); Red Blood Count 3.16 X10*6/uL (4.60-5.80); Red Cell Distribution Width 22.4 % (11.0-16.0); White Blood Count 4.7 X10*3/uL (4.8-10.8)
[2021-07-06 08:10] LABS: Alanine Aminotransferase 75 U/L (0-40); Albumin Level 3.7 g/dL (3.5-5.0); Alkaline Phosphatase 177 U/L (39-117); Anion Gap 11 (12-20); Aspartate Amino Transferase 77 U/L (5-37); Bilirubin Total 0.7 mg/dL (0.0-1.0); Blood Urea Nitrogen 15 mg/dL (9-16); Calcium 9.2 mg/dL (8.4-10.2); Carbon Dioxide 25 mmol/L (22-29); Chloride 106 mmol/L (96-108); Estimated Glomerular Filt Rate > 60; Glucose Random 127 mg/dL (60-115); Potassium 4.1 mmol/L (3.3-5.1); Sodium 138 mmol/L (135-145); Total Protein 6.3 g/dL (6.5-8.0)
[2021-07-09 09:07] LABS: Carbohydrate Antigen 19-9 3187 U/mL (<34)
== END 2021-07-06 07:28 | disposition home or self-care (01) ==
LOC: HO.LAB 07:27
PROVIDERS: PCP Internal Medicine; Visit Provider Internal Medicine Medical Oncology
DX: C17.0 Malignant neoplasm of duodenum (principal)
CPT/HCPCS: 36415; 80053; 82378; 85025; 86301; 86850; 86900; 86901

== ENCOUNTER 2021-07-20 08:38 | Outpatient (REF) | payer OTHER, SELFPAY ==
--- NOTE | ~2021-07-20 | CT_ITS ---
EXAMINATION: CT CHEST AND CT ABDOMEN PELVIS WITH CONTRAST. CLINICAL INFORMATION: Follow-up duodenal carcinoma. COMPARISON: CT chest, abdomen pelvis with contrast 05/18/2021. TECHNIQUE: 5 mm thin axial and reformatted 3 mm thin sagittal and coronal images of chest, abdomen pelvis were obtained following IV 85 mL Omnipaque 350. DLP 598 mGy/cm. FINDINGS: Chest: LUNGS: The lungs are well-expanded and clear of acute pneumonic process. There is 2 mm nodule along the right pericardium in the middle lobe image 321/7, it is new.. Minimal atelectatic changes or scarring is seen in the lingula Mediastinum: The thyroid lobes are symmetrical and normal. The central trachea and the bronchi widely patent. Heart size and the great vessels are normal caliber. No abnormal size mediastinal or hilar lymph nodes seen. There is no pericardial effusion. There is no pleural effusion, calcification or thickening. The axilla and the chest wall appears unremarkable. Osseous structures: No lytic or sclerotic process seen. ABDOMEN AND PELVIS: Liver, gallbladder and biliary tracts: Again visualized are multiple hypodense liver lesions. The bilobed lesion in the right hepatic lobe is slightly smaller now measuring 6.50 cm on axial image 60/3 compared to 7 cm on previous exam 25/3. There are other additional lesions which may be a slightly larger or equivocal or smaller. No new lesions seen. There is no intrahepatic ductal dilatation. No change in hepatomegaly. Spleen: The spleen size is borderline normal without. Pancreas: Unremarkable. There are surgical anselmo in the peripancreatic region of the head. Adrenal glands: Unremarkable. Kidneys and ureters: Both kidneys are normal size, shape and position. There is a left peripelvic and left upper pole renal cyst which appears stable. No radiopaque calculi or hydronephrosis seen. Lymphovascular structures: The abdominal aorta is normal caliber. Small shotty lymph nodes seen in the retroperitoneum. GI tract: There is mild mesenteric haziness similar previous study. Small shotty mesenteric lymph nodes seen. There is moderate stool seen in the colon without any significant distention. Oral contrast opacified small bowel loops are normal caliber. There are postsurgical changes seen in the right upper quadrant likely from duodenal surgery. Small filling defects seen in the second segment of the duodenum unchanged. Appendix is not seen. Abdominal wall: There is bilateral prominent inguinal canal containing fat. Pelvis: The urinary bladder is nondilated. The prostate gland is normal. Osseous structures: There is degenerative disc changes L2-L3 disc level. No lytic or sclerotic process seen. CT/CT abdomen pelvis w con IMPRESSION: 2 mm nodule right middle lobe adjacent to the pericardium, new. Otherwise rest of the lungs are unremarkable. No abnormal mediastinal or axillary lymphadenopathy. No pleural effusion. Multiple liver lesions are stable or minimally improved. There is no worsening. Mass within the second segment of the duodenum appears stable. There are surgical anselmo adjacent to the duodenum likely from lymph node dissection. Left renal cyst appears stable. Mild mesenteric haziness is stable.
[2021-07-20 10:55] LABS: OBS1 NEGATIVE (NEGATIVE); OBS2 NEGATIVE (NEGATIVE); OBS3 NEGATIVE (NEGATIVE)
[2021-07-20 10:56] LABS: OBS Int Ctl Valid YES
[2021-07-20] MEDS: Barium Sulfate Oral (Berry) 450 ML ORAL.SUSP 900 ML PO (11:31)
[2021-07-20] MEDS: iohexoL 300 MG/ML 100 ML INFUS..BTL IV (11:34)
== END 2021-07-20 08:39 | disposition home or self-care (01) ==
LOC: HO.CT 08:38
PROVIDERS: PCP Internal Medicine; Visit Provider Internal Medicine Medical Oncology
DX: C17.0 Malignant neoplasm of duodenum (principal)
CPT/HCPCS: 71260; 74177; 82270; Q9967

== ENCOUNTER 2021-07-26 08:10 | Day surgery (SDC) | payer OTHER, SELFPAY ==
[2021-07-26] VITALS (8 sets, daily range): BP systolic 131–147; BP diastolic 76–95; PULSE 73–82; RESP 17–18; TEMP 36.1–36.6; O2SAT 97–99; BMI 30.3
--- NOTE | ~2021-07-26 | IR_ITS ---
PROCEDURE: IR INSERTION OF TUNNEL CATHETER CLINICAL INFORMATION: Duodenal carcinoma. Needs chemotherapy. COMPARISON: None TECHNIQUE: Following explaining ultrasound and fluoroscopy-guided placement of a right Port-A-Cath procedure, benefits and risk, a written consent was obtained. Patient was placed supine on fluoroscopy table in IR room and preliminary ultrasound imaging was obtained through the right neck. An optimal site was selected and marked on the skin. The right neck area was then cleaned and draped in the usual sterile manner. 1% lidocaine was injected at puncture site. A single wall needle was then advanced from the skin into right jugular vein under sterile ultrasound guidance. After observing venous return, a thin guidewire was placed through the needle and needle withdrawn. A 5-Canadian dilator sheath was placed over the guidewire and the entire unit was anchored to the drape with hemostats. Approximately 1 gauze length away from the right neck incision, 1% lidocaine was injected along the right anterior chest wall. A small skin incision was performed and blind dissection was performed under the skin incision and a pocket created. Also 1% lidocaine with epinephrine was injected from the right chest wall region subcutaneously to right neck incision. Port chamber was then inserted in the created pocket and anchored to the skin with 4-0 nonabsorbable nylon suture on the right and a 2-0 nonabsorbable suture on the left of the patient. The port catheter attached to the tunneler was then bluntly tunneled through the subcutaneous soft tissues and pulled through the right anterior neck incision. The port catheter was then sized appropriately. The guidewire and a 5-Canadian dilator were removed from the right neck incision and a 0.035 J-wire was advanced through the sheath under fluoroscopy into the IVC while nurse watched for any arrhythmia. The 5-Canadian dilator was removed and a 6.6 Canadian dilator with peel-away sheath was inserted over the guidewire. The dilator and the guidewire was removed. The size catheter was then inserted through the peel-away sheath into the SVC and the peel-away sheath was gently removed. A single image was obtained under fluoroscopy documenting position of the catheter tip in the distal SVC. The port was flushed with saline followed by heparin. Subcutaneous 4-0 absorbable sutures were applied along the right anterior chest wall. Along the skin, a Dermabond was placed along the right anterior chest wall and the right neck incision. Sterile dressing applied postprocedure. Patient tolerated the procedure extremely well. IR sedation was given with Versed and fentanyl and patient monitored for 40 minutes. Sterile gloves, a sterile full body drape and hand hygiene. Also followed skin preparation with 2% chlorhexidine for cutaneous antisepsis, and sterile ultrasound preparation with sterile gel and probe cover when applicable. FINDINGS: On preliminary ultrasound imaging, there is a widely patent right jugular vein. Approximately 24 cm long 6.6-Canadian tunneled permacatheter was placed with its tip in the distal SVC. IR/IR cvc insert tunnel w prt/educational audiologist IMPRESSION: Successful ultrasound and fluoroscopy-guided placement of tunneled right permacatheter with its tip in SVC. The catheter is ready for use.
--- NOTE | ~2021-07-26 | IR_ITS ---
PROCEDURE: IR INSERTION OF TUNNEL CATHETER CLINICAL INFORMATION: Duodenal carcinoma. Needs chemotherapy. COMPARISON: None TECHNIQUE: Following explaining ultrasound and fluoroscopy-guided placement of a right Port-A-Cath procedure, benefits and risk, a written consent was obtained. Patient was placed supine on fluoroscopy table in IR room and preliminary ultrasound imaging was obtained through the right neck. An optimal site was selected and marked on the skin. The right neck area was then cleaned and draped in the usual sterile manner. 1% lidocaine was injected at puncture site. A single wall needle was then advanced from the skin into right jugular vein under sterile ultrasound guidance. After observing venous return, a thin guidewire was placed through the needle and needle withdrawn. A 5-British dilator sheath was placed over the guidewire and the entire unit was anchored to the drape with hemostats. Approximately 1 gauze length away from the right neck incision, 1% lidocaine was injected along the right anterior chest wall. A small skin incision was performed and blind dissection was performed under the skin incision and a pocket created. Also 1% lidocaine with epinephrine was injected from the right chest wall region subcutaneously to right neck incision. Port chamber was then inserted in the created pocket and anchored to the skin with 4-0 nonabsorbable nylon suture on the right and a 2-0 nonabsorbable suture on the left of the patient. The port catheter attached to the tunneler was then bluntly tunneled through the subcutaneous soft tissues and pulled through the right anterior neck incision. The port catheter was then sized appropriately. The guidewire and a 5-British dilator were removed from the right neck incision and a 0.035 J-wire was advanced through the sheath under fluoroscopy into the IVC while nurse watched for any arrhythmia. The 5-British dilator was removed and a 6.6 British dilator with peel-away sheath was inserted over the guidewire. The dilator and the guidewire was removed. The size catheter was then inserted through the peel-away sheath into the SVC and the peel-away sheath was gently removed. A single image was obtained under fluoroscopy documenting position of the catheter tip in the distal SVC. The port was flushed with saline followed by heparin. Subcutaneous 4-0 absorbable sutures were applied along the right anterior chest wall. Along the skin, a Dermabond was placed along the right anterior chest wall and the right neck incision. Sterile dressing applied postprocedure. Patient tolerated the procedure extremely well. IR sedation was given with Versed and fentanyl and patient monitored for 40 minutes. Sterile gloves, a sterile full body drape and hand hygiene. Also followed skin preparation with 2% chlorhexidine for cutaneous antisepsis, and sterile ultrasound preparation with sterile gel and probe cover when applicable. FINDINGS: On preliminary ultrasound imaging, there is a widely patent right jugular vein. Approximately 24 cm long 6.6-British tunneled permacatheter was placed with its tip in the distal SVC. IR/IR us guide venous access IMPRESSION: Successful ultrasound and fluoroscopy-guided placement of tunneled right permacatheter with its tip in SVC. The catheter is ready for use.
--- NOTE | 2021-07-26 08:39 | PC.NURSE ---
pt c/o cough & sore throat x 3 days. covid tested at home, rapid covid test 07/22/21 negative, pcr covid test at home 07/23/[address] negative, [address] orr. temp 97.9 temporal. no new orders. [facility] 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
[2021-07-26 08:46] LABS: Basophils Percent Auto 0.7 % (0-2); Eosinophils Absolute Auto 0.1 X10*3/uL (0.0-0.4); Eosinophils Percent Auto 1.1 % (0-4); Hematocrit 30.4 % (42.0-52.0); Hemoglobin 9.2 g/dl (14.0-18.0); Imm Gran Abs Auto 0.01 X10*3/uL (0.00-0.03); Imm Gran Pct Auto 0.2 % (0.0-0.4); Lymphocytes Percent Auto 20.8 % (20-40); MANUAL DIFF FLAG SCAN; Mean Corpuscular HGB Conc 30.3 g/dl (31.0-36.0); Mean Corpuscular Hemoglobin 26.1 pg (27.0-33.0); Mean Corpuscular Volume 86.4 fL (80.0-98.0); Mean Platelet Volume 9.7 fL (9.4-12.4); Monocytes Absolute Auto 1.1 X10*3/uL (0.1-1.2); Neutrophils Absolute Auto 2.5 x10*3/uL (2.0-8.3); Neutrophils Percent Auto 54.2 % (45-73); Platelet Count 154 X10*3/uL (160-400); Red Blood Count 3.52 X10*6/uL (4.60-5.80); Red Cell Distribution Width 23.5 % (11.0-16.0); SCAN SMEAR FLAG 1; White Blood Count 4.6 X10*3/uL (4.8-10.8)
[2021-07-26 08:55] LABS: Partial Thromboplastin Time 29.8 SEC (24.1-38.0)
[2021-07-26 09:05] LABS: SLIDE REVIEW VERIFIED
[2021-07-26] MEDS: Lidocaine HCl 1 % MPF 5 ML VIAL INFILTRATI (10:56)
[2021-07-26] MEDS: Lidocaine HCl 1%/Epi 1:100,000 20 ML VIAL 10 ML INFILTRATI (10:56)
[2021-07-26] MEDS: Heparin Sodium,Porcine Flush 500 UNIT/5 ML SYRINGE IVFLUSH (10:57)
== END 2021-07-26 13:33 | disposition home or self-care (01) ==
PROVIDERS: Radiology Diagnostic Radiology; PCP Internal Medicine; Visit Provider Radiology Diagnostic Radiology
DX: Z45.2 Encounter for adjustment and management of vascular access device (principal); C17.0 Malignant neoplasm of duodenum; C78.7 Secondary malignant neoplasm of liver and intrahepatic bile duct; I10 Essential (primary) hypertension; R91.1 Solitary pulmonary nodule; Z79.899 Other long term (current) drug therapy
CPT/HCPCS: 36415; 36561; 76937; 85025; 85610; 85730; 99152; 99153; C1769; C1788; J0690; J1642; J2250; J3010

== ENCOUNTER 2021-08-10 07:27 | Outpatient (REF) | payer OTHER, SELFPAY ==
[2021-08-10 07:54] LABS: MANUAL DIFF FLAG NO
[2021-08-10 07:58] LABS: Basophils Percent Auto 0.4 % (0-2); Eosinophils Absolute Auto 0.1 X10*3/uL (0.0-0.4); Eosinophils Percent Auto 1.8 % (0-4); Hematocrit 29.6 % (42.0-52.0); Hemoglobin 9.5 g/dl (14.0-18.0); Lymphocytes Percent Auto 37.9 % (20-40); Mean Corpuscular HGB Conc 32.1 g/dl (31.0-36.0); Mean Corpuscular Hemoglobin 26.4 pg (27.0-33.0); Mean Corpuscular Volume 82.2 fL (80.0-98.0); Mean Platelet Volume 9.8 fL (9.4-12.4); Monocytes Absolute Auto 0.3 X10*3/uL (0.1-1.2); Monocytes Percent Auto 9.9 % (2-11); Neutrophils Absolute Auto 1.4 x10*3/uL (2.0-8.3); Platelet Count 150 X10*3/uL (160-400); Red Cell Distribution Width 22.1 % (11.0-16.0); White Blood Count 2.7 X10*3/uL (4.8-10.8)
[2021-08-10 08:14] LABS: Alanine Aminotransferase 63 U/L (0-40); Albumin Level 3.7 g/dL (3.5-5.0); Alkaline Phosphatase 194 U/L (39-117); Anion Gap 13 (12-20); Aspartate Amino Transferase 60 U/L (5-37); Bilirubin Total 0.3 mg/dL (0.0-1.0); Blood Urea Nitrogen 14 mg/dL (9-16); Calcium 8.4 mg/dL (8.4-10.2); Carbon Dioxide 23 mmol/L (22-29); Chloride 106 mmol/L (96-108); Estimated Glomerular Filt Rate > 60; Glucose Random 130 mg/dL (60-115); Potassium 3.6 mmol/L (3.3-5.1); Sodium 138 mmol/L (135-145); Total Protein 6.3 g/dL (6.5-8.0)
[2021-08-10 09:47] LABS: Appearance Urine CLEAR; Color Urine YELLOW; Glucose Urine UA NEG (NEG); Leukocyte Esterase Urine NEG (NEG); Nitrite Urine NEG (NEG); PH 5.5 (5.0-8.0); Urine Blood NEG (NEG); Urine Ketones NEG (NEG); Urine Protein NEG (NEG-TRACE)
== END 2021-08-10 07:28 | disposition home or self-care (01) ==
LOC: HO.LAB 07:27
PROVIDERS: PCP Internal Medicine; Visit Provider Internal Medicine Medical Oncology
DX: C17.0 Malignant neoplasm of duodenum (principal); Z98.890 Other specified postprocedural states
CPT/HCPCS: 36415; 80053; 81003; 85025

== ENCOUNTER 2021-08-24 07:23 | Outpatient (REF) | payer OTHER, SELFPAY ==
[2021-08-24 07:56] LABS: Hematocrit 28.3 % (42.0-52.0); Hemoglobin 8.6 g/dl (14.0-18.0); Mean Corpuscular HGB Conc 30.4 g/dl (31.0-36.0); Mean Corpuscular Hemoglobin 25.3 pg (27.0-33.0); Mean Corpuscular Volume 83.2 fL (80.0-98.0); Mean Platelet Volume 10.2 fL (9.4-12.4); NRBC Pct Auto 0.6 /100WBC (0.0-0.2); Platelet Count 169 X10*3/uL (160-400); Red Cell Distribution Width 21.3 % (11.0-16.0)
[2021-08-24 08:05] LABS: WBC ABN SCTR FOR CBC 1
[2021-08-24 08:17] LABS: Alanine Aminotransferase 43 U/L (0-40); Albumin Level 3.9 g/dL (3.5-5.0); Alkaline Phosphatase 207 U/L (39-117); Anion Gap 11 (12-20); Aspartate Amino Transferase 43 U/L (5-37); Bilirubin Total 0.4 mg/dL (0.0-1.0); Blood Urea Nitrogen 16 mg/dL (9-16); Calcium 8.5 mg/dL (8.4-10.2); Carbon Dioxide 26 mmol/L (22-29); Chloride 105 mmol/L (96-108); Estimated Glomerular Filt Rate > 60; Glucose Random 134 mg/dL (60-115); Potassium 3.8 mmol/L (3.3-5.1); Sodium 138 mmol/L (135-145); Total Protein 6.6 g/dL (6.5-8.0)
[2021-08-24 08:26] LABS: Band Neutrophils Percent 8 % (3-5); Basophils Percent Manual 1 % (0-2); Dohle Bodies PRESENT; Eosinophils Percent Manual 3 % (0-4); Lymphocytes Percent Manual 33 % (20-40); Monocytes Percent Manual 14 % (2-11); Neutrophils Percent Manual 41 % (45-73); RBC Morphology NOTED
[2021-08-24 08:27] LABS: Hypochromasia 1+ (5-14) /OIF; Ovalocytes 1+ (5-14) /OIF; Polychromasia 1+ (0-2) /OIF
[2021-08-24 08:28] LABS: Platelet Estimate NORMAL (NORMAL); Platelet Morphology Comment NORMAL
[2021-08-24 08:30] LABS: Eosinophils Absolute Manual 0.1 X10*3/uL (0.0-0.4); Lymphocytes Absolute Manual 1.2 X10*3/uL (1.2-4.9); Monocytes Absolute Manual 0.5 X10*3/uL (0.1-1.2); Neutrophils Absolute Manual 1.8 X10*3/uL (2.0-8.3); White Blood Count 3.6 X10*3/uL (4.8-10.8)
== END 2021-08-24 07:24 | disposition home or self-care (01) ==
LOC: HO.LAB 07:23
PROVIDERS: PCP Internal Medicine; Visit Provider Internal Medicine Medical Oncology
DX: C17.0 Malignant neoplasm of duodenum (principal)
CPT/HCPCS: 36415; 80053; 85007; 85025; 85027; 86850; 86900; 86901

== ENCOUNTER 2021-09-06 07:20 | Outpatient (REF) | payer OTHER, SELFPAY ==
[2021-09-06 07:52] LABS: MANUAL DIFF FLAG NO
[2021-09-06 08:00] LABS: Basophils Percent Auto 0.4 % (0-2); Eosinophils Percent Auto 0.4 % (0-4); Hematocrit 24.8 % (42.0-52.0); Hemoglobin 7.4 g/dl (14.0-18.0); Imm Gran Abs Auto 0.09 X10*3/uL (0.00-0.03); Imm Gran Pct Auto 1.1 % (0.0-0.4); Lymphocytes Absolute Auto 1.3 X10*3/uL (1.2-4.9); Lymphocytes Percent Auto 15.4 % (20-40); Mean Corpuscular HGB Conc 29.8 g/dl (31.0-36.0); Mean Corpuscular Hemoglobin 24.6 pg (27.0-33.0); Mean Corpuscular Volume 82.4 fL (80.0-98.0); Mean Platelet Volume 9.9 fL (9.4-12.4); Monocytes Absolute Auto 0.9 X10*3/uL (0.1-1.2); Monocytes Percent Auto 10.8 % (2-11); Neutrophils Percent Auto 71.9 % (45-73); Platelet Count 131 X10*3/uL (160-400); Red Blood Count 3.01 X10*6/uL (4.60-5.80); White Blood Count 8.3 X10*3/uL (4.8-10.8)
[2021-09-06 08:22] LABS: Alanine Aminotransferase 37 U/L (0-40); Albumin Level 3.8 g/dL (3.5-5.0); Alkaline Phosphatase 263 U/L (39-117); Anion Gap 10 (12-20); Aspartate Amino Transferase 43 U/L (5-37); Bilirubin Total 0.3 mg/dL (0.0-1.0); Blood Urea Nitrogen 18 mg/dL (9-16); Calcium 8.5 mg/dL (8.4-10.2); Carbon Dioxide 27 mmol/L (22-29); Chloride 105 mmol/L (96-108); Estimated Glomerular Filt Rate > 60; Glucose Random 124 mg/dL (60-115); Sodium 138 mmol/L (135-145); Total Protein 6.5 g/dL (6.5-8.0)
== END 2021-09-06 07:21 | disposition home or self-care (01) ==
LOC: HO.LAB 07:20
PROVIDERS: PCP Internal Medicine; Visit Provider Internal Medicine Medical Oncology
DX: C17.0 Malignant neoplasm of duodenum (principal)
CPT/HCPCS: 36415; 80053; 85025

== ENCOUNTER 2021-09-12 07:26 | Outpatient (REF) | payer OTHER, SELFPAY ==
[2021-09-12 07:41] LABS: MANUAL DIFF FLAG NO
[2021-09-12 08:23] LABS: Basophils Percent Auto 0.5 % (0-2); Eosinophils Percent Auto 0.3 % (0-4); Hematocrit 28.7 % (42.0-52.0); Hemoglobin 8.4 g/dl (14.0-18.0); Imm Gran Pct Auto 1.7 % (0.0-0.4); Lymphocytes Absolute Auto 1.1 X10*3/uL (1.2-4.9); Lymphocytes Percent Auto 18.9 % (20-40); Mean Corpuscular HGB Conc 29.3 g/dl (31.0-36.0); Mean Corpuscular Hemoglobin 24.6 pg (27.0-33.0); Mean Corpuscular Volume 83.9 fL (80.0-98.0); Mean Platelet Volume 11.3 fL (9.4-12.4); Monocytes Absolute Auto 0.7 X10*3/uL (0.1-1.2); Neutrophils Absolute Auto 3.9 x10*3/uL (2.0-8.3); Neutrophils Percent Auto 66.6 % (45-73); Platelet Count 168 X10*3/uL (160-400); Red Blood Count 3.42 X10*6/uL (4.60-5.80); Red Cell Distribution Width 20.9 % (11.0-16.0); White Blood Count 5.8 X10*3/uL (4.8-10.8)
[2021-09-12 08:59] LABS: Alanine Aminotransferase 29 U/L (0-40); Albumin Level 3.7 g/dL (3.5-5.0); Alkaline Phosphatase 226 U/L (39-117); Anion Gap 11 (12-20); Aspartate Amino Transferase 38 U/L (5-37); Bilirubin Total < 0.2 mg/dL (0.0-1.0); Blood Urea Nitrogen 15 mg/dL (9-16); Calcium 8.5 mg/dL (8.4-10.2); Carbon Dioxide 24 mmol/L (22-29); Chloride 103 mmol/L (96-108); Estimated Glomerular Filt Rate > 60; Glucose Random 182 mg/dL (60-115); Potassium 3.8 mmol/L (3.3-5.1); Sodium 134 mmol/L (135-145); Total Protein 6.3 g/dL (6.5-8.0)
[2021-09-12 08:59] LABS: Appearance Urine CLEAR; Color Urine YELLOW; Glucose Urine UA NEG (NEG); Leukocyte Esterase Urine NEG (NEG); Nitrite Urine NEG (NEG); Specific Gravity - Urine 1.025 (1.005-1.025); Urine Blood NEG (NEG); Urine Ketones NEG (NEG); Urine Protein NEG (NEG-TRACE)
== END 2021-09-12 07:27 | disposition home or self-care (01) ==
LOC: HO.LAB 07:26
PROVIDERS: PCP Internal Medicine; Visit Provider Internal Medicine Medical Oncology
DX: C17.0 Malignant neoplasm of duodenum (principal)
CPT/HCPCS: 36415; 80053; 81003; 85025

== ENCOUNTER 2021-09-21 07:21 | Outpatient (REF) | payer OTHER, SELFPAY ==
[2021-09-21 07:46] LABS: Hematocrit 25.8 % (42.0-52.0); Hemoglobin 7.8 g/dl (14.0-18.0); Mean Corpuscular HGB Conc 30.2 g/dl (31.0-36.0); Mean Corpuscular Hemoglobin 25.1 pg (27.0-33.0); Mean Platelet Volume 10.6 fL (9.4-12.4); Platelet Count 193 X10*3/uL (160-400); Red Blood Count 3.11 X10*6/uL (4.60-5.80); Red Cell Distribution Width 21.3 % (11.0-16.0)
[2021-09-21 07:57] LABS: Alanine Aminotransferase 43 U/L (0-40); Albumin Level 3.8 g/dL (3.5-5.0); Alkaline Phosphatase 250 U/L (39-117); Anion Gap 14 (12-20); Aspartate Amino Transferase 49 U/L (5-37); Bilirubin Total 0.3 mg/dL (0.0-1.0); Blood Urea Nitrogen 16 mg/dL (9-16); Calcium 8.8 mg/dL (8.4-10.2); Carbon Dioxide 25 mmol/L (22-29); Chloride 105 mmol/L (96-108); Estimated Glomerular Filt Rate > 60; Glucose Random 123 mg/dL (60-115); Potassium 3.6 mmol/L (3.3-5.1); Sodium 140 mmol/L (135-145); Total Protein 6.6 g/dL (6.5-8.0)
[2021-09-21 08:37] LABS: Band Neutrophils Percent 5 % (3-5); Lymphocytes Absolute Manual 1.3 X10*3/uL (1.2-4.9); Lymphocytes Percent Manual 13 % (20-40); Metamyelocytes Absolute 0.1 X10*3/uL; Metamyelocytes Percent 1 %; Monocytes Absolute Manual 0.4 X10*3/uL (0.1-1.2); Monocytes Percent Manual 4 % (2-11); Neutrophils Absolute Manual 8.2 X10*3/uL (2.0-8.3); Neutrophils Percent Manual 77 % (45-73)
[2021-09-21 08:42] LABS: Macrocytosis 1+ (5-14) /OIF; Microcytosis 1+ (5-14) /OIF; RBC Morphology NOTED
[2021-09-21 08:43] LABS: Ovalocytes 1+ (5-14) /OIF; Tear Drop Cells 1+ (0-2) /OIF
[2021-09-21 08:44] LABS: Hypochromasia 2+ (15-30) /OIF; Polychromasia 1+ (0-2) /OIF
[2021-09-21 08:46] LABS: Dohle Bodies PRESENT; Platelet Estimate NORMAL (NORMAL); Platelet Morphology Comment NORMAL
== END 2021-09-21 07:22 | disposition home or self-care (01) ==
LOC: HO.LAB 07:21
PROVIDERS: Internal Medicine; PCP Internal Medicine; Visit Provider Internal Medicine Medical Oncology
DX: C17.0 Malignant neoplasm of duodenum (principal)
CPT/HCPCS: 36415; 80053; 85007; 85027

== ENCOUNTER 2021-10-05 07:17 | Outpatient (REF) | payer OTHER, SELFPAY ==
[2021-10-05 08:40] LABS: TSH reflex Free T4 3.25 uIU/mL (0.32-4.0); Vitamin D 25-OH Total 44.2 ng/mL (>30)
[2021-10-07 10:27] LABS: Carbohydrate Antigen 19-9 1658 U/mL (<34)
== END 2021-10-05 07:18 | disposition home or self-care (01) ==
LOC: HO.LAB 07:17
PROVIDERS: PCP Internal Medicine; Visit Provider Internal Medicine Medical Oncology
DX: C17.0 Malignant neoplasm of duodenum (principal)
CPT/HCPCS: 36415; 82306; 82378; 84443; 86301

== ENCOUNTER 2021-10-06 07:24 | Outpatient (REF) | payer OTHER, SELFPAY | END 2021-10-06 07:25 | disposition home or self-care (01) | LOC: HO.LAB 07:24 | PROVIDERS: Absent Provider Internal Medicine; PCP Internal Medicine; Visit Provider Internal Medicine Medical Oncology | DX: Z13.89 Encounter for screening for other disorder (principal) ==

== ENCOUNTER 2021-10-06 09:46 | Outpatient (REF) | payer OTHER, SELFPAY ==
[2021-10-06 10:09] LABS: Appearance Urine Clear; Color Urine Yellow; Glucose Urine UA Negative (Negative); Leukocyte Esterase Urine Negative (Negative); Nitrite Urine Negative (Negative); Specific Gravity - Urine 1.015 (1.005-1.025); Urine Blood Negative (Negative); Urine Ketones Negative (Negative); Urine Protein Negative (Neg-Trace)
== END 2021-10-06 09:47 | disposition home or self-care (01) ==
LOC: HO.LNP 09:46
PROVIDERS: Visit Provider Internal Medicine
DX: C17.0 Malignant neoplasm of duodenum (principal)
CPT/HCPCS: 81003

== ENCOUNTER 2021-10-17 07:27 | Outpatient (REF) | payer OTHER, SELFPAY ==
[2021-10-17 07:48] LABS: Hematocrit 28.5 % (42.0-52.0); Hemoglobin 8.5 g/dl (14.0-18.0); Mean Corpuscular HGB Conc 29.8 g/dl (31.0-36.0); Mean Corpuscular Hemoglobin 24.2 pg (27.0-33.0); Mean Corpuscular Volume 81.2 fL (80.0-98.0); Mean Platelet Volume 10.8 fL (9.4-12.4); Platelet Count 131 X10*3/uL (160-400); Red Blood Count 3.51 X10*6/uL (4.60-5.80); White Blood Count 6.6 X10*3/uL (4.8-10.8)
[2021-10-17 08:11] LABS: Alanine Aminotransferase 39 U/L (0-40); Albumin Level 3.8 g/dL (3.5-5.0); Alkaline Phosphatase 236 U/L (39-117); Anion Gap 14 (12-20); Aspartate Amino Transferase 50 U/L (5-37); Bilirubin Total 0.3 mg/dL (0.0-1.0); Blood Urea Nitrogen 11 mg/dL (9-16); Calcium 8.3 mg/dL (8.4-10.2); Carbon Dioxide 23 mmol/L (22-29); Chloride 103 mmol/L (96-108); Estimated Glomerular Filt Rate > 60; Glucose Random 149 mg/dL (60-115); Potassium 3.4 mmol/L (3.3-5.1); Sodium 137 mmol/L (135-145); Total Protein 6.5 g/dL (6.5-8.0)
[2021-10-17 08:15] LABS: Band Neutrophils Percent 10 % (3-5); Lymphocytes Absolute Manual 1.3 X10*3/uL (1.2-4.9); Lymphocytes Percent Manual 19 % (20-40); Metamyelocytes Absolute 0.1 X10*3/uL; Metamyelocytes Percent 2 %; Monocytes Absolute Manual 0.5 X10*3/uL (0.1-1.2); Monocytes Percent Manual 7 % (2-11); Myelocytes Absolute 0.1 X10*/uL; Myelocytes Percent 1 %; Neutrophils Absolute Manual 4.7 X10*3/uL (2.0-8.3); Neutrophils Percent Manual 61 % (45-73)
[2021-10-17 08:17] LABS: RBC Morphology NOTED
[2021-10-17 08:18] LABS: Dohle Bodies PRESENT; Hypochromasia 1+ (5-14) /OIF; Microcytosis 1+ (5-14) /OIF; Platelet Estimate SLIGHTLY DECREASED (NORMAL); Platelet Morphology Comment NORMAL; Tear Drop Cells 1+ (0-2) /OIF; Toxic Granulation PRESENT
[2021-10-20 08:52] LABS: Carbohydrate Antigen 19-9 589 U/mL (<34)
== END 2021-10-17 07:28 | disposition home or self-care (01) ==
LOC: HO.LAB 07:27
PROVIDERS: PCP Internal Medicine; Visit Provider Internal Medicine Medical Oncology
DX: C17.0 Malignant neoplasm of duodenum (principal)
CPT/HCPCS: 36415; 80053; 82378; 85007; 85027; 86301; 86850; 86900; 86901; 86923

== ENCOUNTER 2021-10-26 08:25 | Outpatient (REF) | payer OTHER, SELFPAY ==
--- NOTE | ~2021-10-26 | CT_ITS ---
EXAMINATION: CT ABDOMEN AND PELVIS WITH CONTRAST CLINICAL INFORMATION: Carcinoma of in the duodenum. Follow-up after chemotherapy. COMPARISON: Previous chest CT scans most recent July 2021 TECHNIQUE: Multidetector volumetric images were obtained from the superior aspect of the liver through the pubic symphysis following administration 85 mL of Omnipaque 350 intravenous contrast. Sagittal and coronal reformatted images were obtained on the technologist's workstation. Oral contrast: Yes This CT examination was performed using dose optimization techniques as appropriate, variously including the following: *Automated exposure control *Adjustment of mA and/or kV according to patient size (this includes techniques or standardized protocols for targeted exams where dose is matched to indication/reason for exam; i.e. extremities or head) *Use of iterative reconstruction technique DLP: 534 mGy-cm FINDINGS: LUNG BASES: The visualized lung bases are unremarkable. LIVER, GALLBLADDER, AND BILIARY TREE: The liver is enlarged, right lobe measuring 20 cm in length. There is no appreciable change in the multiple liver lesions. Largest liver lesions measure 6 x 5 cm in the posterior segment of the right lower lobe axial image 19 series 3.2 x 6.8 cm axial image 31 series 3 and 5.8 x 8 cm 0.1 cm axial image 38 series 3 no definite new liver lesions are seen. The gallbladder is contracted. There is no biliary duct dilatation. PANCREAS: Unremarkable. SPLEEN: The spleen is enlarged and measures 16 cm in length. There is a wedge-shaped area of low attenuation in superior spleen. This measures 1.2 x 2.2 cm axial image 16 series 3. This appears slightly decreased in size from 2 x 3 cm on previous exam. 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 ADRENAL GLANDS: Unremarkable. KIDNEYS AND URETERS: There is a 4 cm cyst in the upper pole of the left kidney. There is question of a calyceal dilatation in the lower pole the left kidney versus peripelvic cyst. This appears unchanged.. The right kidney is normal. BLADDER: Unremarkable. GASTROINTESTINAL TRACT: There is a soft tissue mass in the second portion of the duodenum adjacent to the head of the pancreas. This does not appear appreciably changed. There are embolization coils and surgical clips seen in this region. Small and large bowel is otherwise unremarkable. The appendix is normal. ABDOMINAL WALL: There are small bilateral inguinal hernias containing fat. LYMPH NODES: There are small upper abdominal retroperitoneal lymph nodes. There is slight stranding of the small bowel mesentery fat. This is similar to previous exam. There are small lymph nodes in the periportal region and adjacent to the head of the pancreas. These appear stable as well. No ascites. No evidence of peritoneal disease. VASCULAR: Unremarkable. PELVIC VISCERA: Unremarkable. OSSEOUS STRUCTURES: Mild scoliosis. No fracture or bone lesion. CT/CT abdomen pelvis w IV con IMPRESSION: Enlarged liver. No appreciable change in the multiple liver lesions. No appreciable change in the mass in the duodenum, small surrounding lymphadenopathy and stranding of the fat in the small bowel mesentery. Enlarged spleen. 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 Stable left renal cysts and question lower pole peripelvic cyst versus calyceal dilatation. Fleischner guidelines were followed.
--- NOTE | ~2021-10-26 | CT_ITS ---
EXAMINATION: CT CHEST WITH CONTRAST 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 COMPARISON: Previous chest CT July 2021 TECHNIQUE: Multidetector volumetric CT imaging of the chest was obtained after the administration of 85 mL of Omnipaque 350 intravenous contrast without immediate adverse reactions. Axial MIP volume rendering provided. Sagittal and coronal reformatted images were obtained. This CT examination was performed using dose optimization techniques as appropriate, variously including the following: *Automated exposure control *Adjustment of mA and/or kV according to patient size (this includes techniques or standardized protocols for targeted exams where dose is matched to indication/reason for exam; i.e. extremities or head) *Use of iterative reconstruction technique DLP: 182 mGy-cm FINDINGS: LUNGS: There is interval increase in size and number of pulmonary nodules. Largest pulmonary nodules measure 7 mm in the right lower lobe axial image 321 series 5 and 9 mm in the anterior segment of the right upper lobe axial image 260 series 5. MEDIASTINUM: The mediastinum is normal. There is a right jugular port with tip projecting over the SVC PLEURA: There is no pleural effusion. No pleural mass or thickening. AXILLA: No lymphadenopathy. UPPER ABDOMEN: See abdominal and pelvic CT report from the same day OSSEOUS STRUCTURES: Unremarkable. CT/CT chest w IV con IMPRESSION: Interval increase in size and number of bilateral pulmonary nodules. Fleischner guidelines were followed.
[2021-10-26 08:41] LABS: MANUAL DIFF FLAG NO
[2021-10-26 09:06] LABS: Basophils Percent Auto 0.4 % (0-2); Eosinophils Percent Auto 0.4 % (0-4); Hematocrit 31.4 % (42.0-52.0); Hemoglobin 9.3 g/dl (14.0-18.0); Imm Gran Abs Auto 0.04 X10*3/uL (0.00-0.03); Imm Gran Pct Auto 0.8 % (0.0-0.4); Lymphocytes Absolute Auto 1.4 X10*3/uL (1.2-4.9); Lymphocytes Percent Auto 28.8 % (20-40); Mean Corpuscular HGB Conc 29.6 g/dl (31.0-36.0); Mean Corpuscular Hemoglobin 24.7 pg (27.0-33.0); Mean Corpuscular Volume 83.3 fL (80.0-98.0); Mean Platelet Volume 10.5 fL (9.4-12.4); Monocytes Absolute Auto 0.7 X10*3/uL (0.1-1.2); Monocytes Percent Auto 14.5 % (2-11); Neutrophils Absolute Auto 2.7 x10*3/uL (2.0-8.3); Neutrophils Percent Auto 55.1 % (45-73); Platelet Count 126 X10*3/uL (160-400); Red Blood Count 3.77 X10*6/uL (4.60-5.80); White Blood Count 4.9 X10*3/uL (4.8-10.8)
[2021-10-26 09:37] LABS: Alanine Aminotransferase 34 U/L (0-40); Albumin Level 3.8 g/dL (3.5-5.0); Alkaline Phosphatase 234 U/L (39-117); Anion Gap 13 (12-20); Aspartate Amino Transferase 52 U/L (5-37); Bilirubin Total 0.2 mg/dL (0.0-1.0); Blood Urea Nitrogen 15 mg/dL (9-16); Calcium 8.6 mg/dL (8.4-10.2); Carbon Dioxide 26 mmol/L (22-29); Chloride 104 mmol/L (96-108); Estimated Glomerular Filt Rate > 60; Glucose Random 102 mg/dL (60-115); Potassium 4.3 mmol/L (3.3-5.1); Sodium 139 mmol/L (135-145); Total Protein 6.6 g/dL (6.5-8.0)
[2021-10-26] MEDS: Barium Sulfate Oral (Berry) 450 ML ORAL.SUSP 900 ML PO (11:19)
[2021-10-26] MEDS: iohexoL 350 MG/ML 100 ML INFUS..BTL IV (11:20)
== END 2021-10-26 08:26 | disposition home or self-care (01) ==
LOC: HO.CT 08:25
PROVIDERS: PCP Internal Medicine; Visit Provider Internal Medicine Medical Oncology
DX: C17.0 Malignant neoplasm of duodenum (principal)
CPT/HCPCS: 36415; 71260; 74177; 80053; 85025; 86850; 86900; 86901; Q9967

== ENCOUNTER 2021-11-04 15:27 | Outpatient (REF) | payer OTHER, SELFPAY ==
[2021-11-04 15:55] LABS: MANUAL DIFF FLAG NO
[2021-11-04 15:58] LABS: Basophils Percent Auto 0.6 % (0-2); Eosinophils Absolute Auto 0.1 X10*3/uL (0.0-0.4); Eosinophils Percent Auto 1.4 % (0-4); Hematocrit 29.2 % (42.0-52.0); Hemoglobin 8.7 g/dl (14.0-18.0); Imm Gran Abs Auto 0.01 X10*3/uL (0.00-0.03); Imm Gran Pct Auto 0.2 % (0.0-0.4); Lymphocytes Absolute Auto 1.2 X10*3/uL (1.2-4.9); Lymphocytes Percent Auto 18.9 % (20-40); Mean Corpuscular HGB Conc 29.8 g/dl (31.0-36.0); Mean Corpuscular Hemoglobin 24.1 pg (27.0-33.0); Mean Corpuscular Volume 80.9 fL (80.0-98.0); Mean Platelet Volume 10.3 fL (9.4-12.4); Monocytes Percent Auto 15.1 % (2-11); Neutrophils Absolute Auto 4.2 x10*3/uL (2.0-8.3); Neutrophils Percent Auto 63.8 % (45-73); Platelet Count 161 X10*3/uL (160-400); Red Blood Count 3.61 X10*6/uL (4.60-5.80); Red Cell Distribution Width 19.4 % (11.0-16.0); White Blood Count 6.6 X10*3/uL (4.8-10.8)
[2021-11-04 16:24] LABS: Alanine Aminotransferase 36 U/L (0-40); Alkaline Phosphatase 226 U/L (39-117); Anion Gap 15 (12-20); Aspartate Amino Transferase 53 U/L (5-37); Bilirubin Total 0.4 mg/dL (0.0-1.0); Blood Urea Nitrogen 16 mg/dL (9-16); Calcium 9.2 mg/dL (8.4-10.2); Carbon Dioxide 26 mmol/L (22-29); Chloride 100 mmol/L (96-108); Estimated Glomerular Filt Rate > 60; Glucose Random 139 mg/dL (60-115); Potassium 3.9 mmol/L (3.3-5.1); Sodium 137 mmol/L (135-145); Total Protein 6.9 g/dL (6.5-8.0)
== END 2021-11-04 15:28 | disposition home or self-care (01) ==
LOC: HO.LAB 15:27
PROVIDERS: PCP Internal Medicine; Visit Provider Internal Medicine Medical Oncology
DX: C17.0 Malignant neoplasm of duodenum (principal)
CPT/HCPCS: 36415; 80053; 85025; 86850; 86900; 86901

== ENCOUNTER 2021-11-16 07:28 | Outpatient (REF) | payer OTHER, SELFPAY ==
[2021-11-16 08:26] LABS: Basophils Absolute Auto 0.1 X10*3/uL (0.0-0.2); Basophils Percent Auto 0.7 % (0-2); Eosinophils Absolute Auto 0.2 X10*3/uL (0.0-0.4); Eosinophils Percent Auto 2.4 % (0-4); Hematocrit 28.5 % (42.0-52.0); Hemoglobin 8.3 g/dl (14.0-18.0); Imm Gran Abs Auto 0.06 X10*3/uL (0.00-0.03); Imm Gran Pct Auto 0.7 % (0.0-0.4); Lymphocytes Absolute Auto 1.2 X10*3/uL (1.2-4.9); Lymphocytes Percent Auto 13.3 % (20-40); MANUAL DIFF FLAG SCAN; Mean Corpuscular HGB Conc 29.1 g/dl (31.0-36.0); Mean Corpuscular Hemoglobin 23.4 pg (27.0-33.0); Mean Corpuscular Volume 80.3 fL (80.0-98.0); Monocytes Percent Auto 10.8 % (2-11); Neutrophils Absolute Auto 6.5 x10*3/uL (2.0-8.3); Neutrophils Percent Auto 72.1 % (45-73); PLT CLUMP 1; Red Blood Count 3.55 X10*6/uL (4.60-5.80); Red Cell Distribution Width 19.9 % (11.0-16.0); SCAN SMEAR FLAG 1
[2021-11-16 08:53] LABS: Platelet Count 115 X10*3/uL (160-400); White Blood Count 9.1 X10*3/uL (4.8-10.8)
[2021-11-16 08:54] LABS: SLIDE REVIEW VERIFIED
[2021-11-16 09:06] LABS: Alanine Aminotransferase 43 U/L (0-40); Alkaline Phosphatase 319 U/L (39-117); Anion Gap 16 (12-20); Aspartate Amino Transferase 53 U/L (5-37); Bilirubin Total 0.4 mg/dL (0.0-1.0); Blood Urea Nitrogen 12 mg/dL (9-16); Carbon Dioxide 24 mmol/L (22-29); Chloride 102 mmol/L (96-108); Estimated Glomerular Filt Rate > 60; Glucose Random 152 mg/dL (60-115); Potassium 3.8 mmol/L (3.3-5.1); Sodium 138 mmol/L (135-145); Total Protein 6.8 g/dL (6.5-8.0)
== END 2021-11-16 07:29 | disposition home or self-care (01) ==
LOC: HO.LAB 07:28
PROVIDERS: PCP Internal Medicine; Visit Provider Internal Medicine Medical Oncology
DX: C17.0 Malignant neoplasm of duodenum (principal)
CPT/HCPCS: 36415; 80053; 85025; 86850; 86900; 86901

== ENCOUNTER 2021-11-30 07:24 | Outpatient (REF) | payer OTHER, SELFPAY ==
[2021-11-30 07:43] LABS: MANUAL DIFF FLAG NO
[2021-11-30 08:50] LABS: Basophils Absolute Auto 0.1 X10*3/uL (0.0-0.2); Basophils Percent Auto 0.6 % (0-2); Eosinophils Absolute Auto 0.1 X10*3/uL (0.0-0.4); Eosinophils Percent Auto 0.5 % (0-4); Hematocrit 30.3 % (42.0-52.0); Imm Gran Abs Auto 0.16 X10*3/uL (0.00-0.03); Imm Gran Pct Auto 1.2 % (0.0-0.4); Lymphocytes Absolute Auto 1.4 X10*3/uL (1.2-4.9); Lymphocytes Percent Auto 10.5 % (20-40); Mean Corpuscular HGB Conc 29.7 g/dl (31.0-36.0); Mean Corpuscular Hemoglobin 23.8 pg (27.0-33.0); Mean Corpuscular Volume 80.2 fL (80.0-98.0); Mean Platelet Volume 10.7 fL (9.4-12.4); Monocytes Absolute Auto 1.2 X10*3/uL (0.1-1.2); Neutrophils Absolute Auto 10.6 x10*3/uL (2.0-8.3); Neutrophils Percent Auto 78.2 % (45-73); Platelet Count 172 X10*3/uL (160-400); Red Blood Count 3.78 X10*6/uL (4.60-5.80); Red Cell Distribution Width 20.6 % (11.0-16.0); White Blood Count 13.6 X10*3/uL (4.8-10.8)
[2021-11-30 09:08] LABS: Alanine Aminotransferase 55 U/L (0-40); Albumin Level 3.9 g/dL (3.5-5.0); Alkaline Phosphatase 409 U/L (39-117); Anion Gap 17 (12-20); Aspartate Amino Transferase 62 U/L (5-37); Bilirubin Total 0.3 mg/dL (0.0-1.0); Blood Urea Nitrogen 12 mg/dL (9-16); Carbon Dioxide 24 mmol/L (22-29); Chloride 100 mmol/L (96-108); Estimated Glomerular Filt Rate > 60; Glucose Random 164 mg/dL (60-115); Potassium 3.6 mmol/L (3.3-5.1); Sodium 137 mmol/L (135-145)
== END 2021-11-30 07:25 | disposition home or self-care (01) ==
LOC: HO.LAB 07:24
PROVIDERS: PCP Internal Medicine; Visit Provider Internal Medicine Medical Oncology
DX: C17.0 Malignant neoplasm of duodenum (principal)
CPT/HCPCS: 36415; 80053; 85025; 86850; 86900; 86901

== ENCOUNTER 2021-12-14 07:23 | Outpatient (REF) | payer OTHER, SELFPAY ==
[2021-12-14 07:36] LABS: MANUAL DIFF FLAG NO
[2021-12-14 07:46] LABS: Basophils Absolute Auto 0.1 X10*3/uL (0.0-0.2); Basophils Percent Auto 0.6 % (0-2); Eosinophils Percent Auto 0.3 % (0-4); Hematocrit 27.3 % (42.0-52.0); Imm Gran Abs Auto 0.19 X10*3/uL (0.00-0.03); Imm Gran Pct Auto 1.2 % (0.0-0.4); Lymphocytes Absolute Auto 1.3 X10*3/uL (1.2-4.9); Lymphocytes Percent Auto 8.7 % (20-40); Mean Corpuscular HGB Conc 29.3 g/dl (31.0-36.0); Mean Corpuscular Hemoglobin 23.5 pg (27.0-33.0); Mean Corpuscular Volume 80.1 fL (80.0-98.0); Mean Platelet Volume 10.1 fL (9.4-12.4); Monocytes Absolute Auto 1.3 X10*3/uL (0.1-1.2); Monocytes Percent Auto 8.5 % (2-11); Neutrophils Absolute Auto 12.4 x10*3/uL (2.0-8.3); Neutrophils Percent Auto 80.7 % (45-73); Platelet Count 173 X10*3/uL (160-400); Red Blood Count 3.41 X10*6/uL (4.60-5.80); Red Cell Distribution Width 21.3 % (11.0-16.0); White Blood Count 15.4 X10*3/uL (4.8-10.8)
[2021-12-14 08:07] LABS: D Dimer High Sensitivity 1141 NG/ML
[2021-12-14 08:19] LABS: Alanine Aminotransferase 42 U/L (0-40); Albumin Level 3.9 g/dL (3.5-5.0); Alkaline Phosphatase 465 U/L (39-117); Anion Gap 16 (12-20); Aspartate Amino Transferase 60 U/L (5-37); Bilirubin Total 0.2 mg/dL (0.0-1.0); Blood Urea Nitrogen 14 mg/dL (9-16); Carbon Dioxide 25 mmol/L (22-29); Chloride 102 mmol/L (96-108); Estimated Glomerular Filt Rate > 60; Glucose Random 149 mg/dL (60-115); Potassium 3.9 mmol/L (3.3-5.1); Sodium 139 mmol/L (135-145); Total Protein 6.9 g/dL (6.5-8.0)
== END 2021-12-14 07:24 | disposition home or self-care (01) ==
LOC: HO.LAB 07:23
PROVIDERS: PCP Internal Medicine; Visit Provider Internal Medicine Medical Oncology
DX: C17.0 Malignant neoplasm of duodenum (principal)
CPT/HCPCS: 36415; 80053; 85025; 85379

== ENCOUNTER 2021-12-15 11:14 | Outpatient (REF) | payer OTHER, SELFPAY ==
--- NOTE | ~2021-12-15 | CT_ITS ---
EXAMINATION: CT ANGIOGRAM OF THE CHEST WITH CONTRAST (CT PULMONARY ANGIOGRAM FOR PE) CLINICAL INFORMATION: Chest pain. Evaluate for pulmonary embolism. History of carcinoma of duodenum and pulmonary nodules. COMPARISON: Chest CT from 10/26/2021. TECHNIQUE: Prior to contrast administration, noncontrast localization images were obtained. Subsequently, multidetector volumetric imaging was performed from the thoracic inlet to below the diaphragms following the administration of 65 mL Omnipaque 350 intravenous contrast. No contrast reaction reported. Sagittal, coronal, and MIP oblique sagittal reformatted images were obtained on the CT workstation, uploaded to PACS, and reviewed. This CT examination was performed using dose optimization techniques as appropriate, variously including the following: *Automated exposure control *Adjustment of mA and/or kV according to patient size (this includes techniques or standardized protocols for targeted exams where dose is matched to indication/reason for exam; i.e. extremities or head) *Use of iterative reconstruction technique DLP: Total exam dose-length product 132 mGy-cm FINDINGS: LUNGS AND PLEURA: Trachea and central airways are widely patent and normal in caliber. No pulmonary edema, consolidation or pleural effusion. No pneumothorax. Again noted are multiple solid bilateral pulmonary nodules in this patient with history of duodenal carcinoma. A 1.5 cm right lower lobe nodule has increased from its 0.6 cm size on 10/26/2021 (316, series 7). Other nodules have increased in size, as well, such as a 0.8 cm right lower lobe nodule that was less than 0.4 cm on the prior exam (275, series 7). QUALITY OF STUDY/CONTRAST BOLUS: Satisfactory. CARDIOVASCULAR: The pulmonary arteries are normal in size. No embolic filling defects are identified within the main, lobar or segmental vessels. The heart size is normal. No pericardial effusion. Mild atherosclerotic calcification of left anterior descending coronary artery is present. Thoracic aorta is normal. MEDIASTINUM/LOWER NECK: The esophagus and thyroid gland are unremarkable. No mediastinal mass. LYMPHATICS: No axillary or internal mammary lymphadenopathy. No pathologic sized mediastinal or hilar lymph nodes. UPPER ABDOMEN: No contrast reflux into the inferior vena cava. Multiple hypodense masses and confluent masses are present within the partially visualized liver. The severity of disease is not appreciably changed compared to 10/26/2021. Persistent splenomegaly. 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 A simple cyst of the left kidney is partially included in the [id number]. No renal imaging follow-up is recommended for a simple cyst. OSSEOUS STRUCTURES: No suspicious osseous lesions within the thorax. CT/CT angio chest PE protocol IMPRESSION: * No evidence of pulmonary embolism. * Interval increased size of metastatic pulmonary nodules. * No significant change in appearance of metastatic lesions within the partially visualized liver. 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
[2021-12-15] MEDS: iohexoL 350 MG/ML 100 ML INFUS..BTL IV (12:02)
== END 2021-12-15 11:15 | disposition home or self-care (01) ==
LOC: HO.CT 11:14
PROVIDERS: PCP Internal Medicine; Visit Provider Internal Medicine Medical Oncology
DX: R07.9 Chest pain, unspecified (principal)
CPT/HCPCS: 71275; Q9967

== ENCOUNTER 2021-12-28 07:26 | Outpatient (REF) | payer OTHER, SELFPAY ==
[2021-12-28 07:43] LABS: MANUAL DIFF FLAG NO
[2021-12-28 07:46] LABS: Basophils Absolute Auto 0.1 X10*3/uL (0.0-0.2); Basophils Percent Auto 0.5 % (0-2); Eosinophils Percent Auto 0.2 % (0-4); Hematocrit 28.5 % (42.0-52.0); Hemoglobin 8.4 g/dl (14.0-18.0); Imm Gran Abs Auto 0.16 X10*3/uL (0.00-0.03); Imm Gran Pct Auto 1.1 % (0.0-0.4); Lymphocytes Absolute Auto 1.1 X10*3/uL (1.2-4.9); Lymphocytes Percent Auto 7.6 % (20-40); Mean Corpuscular HGB Conc 29.5 g/dl (31.0-36.0); Mean Corpuscular Hemoglobin 24.1 pg (27.0-33.0); Mean Corpuscular Volume 81.7 fL (80.0-98.0); Monocytes Absolute Auto 1.1 X10*3/uL (0.1-1.2); Monocytes Percent Auto 7.6 % (2-11); Neutrophils Absolute Auto 11.9 x10*3/uL (2.0-8.3); Platelet Count 122 X10*3/uL (160-400); Red Blood Count 3.49 X10*6/uL (4.60-5.80); Red Cell Distribution Width 21.1 % (11.0-16.0); White Blood Count 14.4 X10*3/uL (4.8-10.8)
[2021-12-28 08:12] LABS: Alanine Aminotransferase 37 U/L (0-40); Albumin Level 3.7 g/dL (3.5-5.0); Alkaline Phosphatase 533 U/L (39-117); Anion Gap 15 (12-20); Aspartate Amino Transferase 52 U/L (5-37); Bilirubin Total 0.3 mg/dL (0.0-1.0); Blood Urea Nitrogen 17 mg/dL (9-16); Calcium 8.9 mg/dL (8.4-10.2); Carbon Dioxide 25 mmol/L (22-29); Chloride 102 mmol/L (96-108); Estimated Glomerular Filt Rate > 60; Glucose Random 140 mg/dL (60-115); Potassium 3.7 mmol/L (3.3-5.1); Sodium 138 mmol/L (135-145); Total Protein 6.8 g/dL (6.5-8.0)
== END 2021-12-28 07:27 | disposition home or self-care (01) ==
LOC: HO.LAB 07:26
PROVIDERS: PCP Internal Medicine; Visit Provider Internal Medicine Medical Oncology
DX: C17.0 Malignant neoplasm of duodenum (principal)
CPT/HCPCS: 36415; 80053; 82378; 85025

== ENCOUNTER 2022-01-09 09:43 | Outpatient (REF) | payer OTHER, SELFPAY ==
[2022-01-09 10:54] LABS: Hematocrit 30.4 % (42.0-52.0); Hemoglobin 9.2 g/dl (14.0-18.0); Mean Corpuscular HGB Conc 30.3 g/dl (31.0-36.0); Mean Corpuscular Hemoglobin 24.8 pg (27.0-33.0); Mean Corpuscular Volume 81.9 fL (80.0-98.0); Mean Platelet Volume 9.6 fL (9.4-12.4); Platelet Count 135 X10*3/uL (160-400); Red Blood Count 3.71 X10*6/uL (4.60-5.80); Red Cell Distribution Width 19.7 % (11.0-16.0); White Blood Count 14.2 X10*3/uL (4.8-10.8)
[2022-01-09 11:30] LABS: Alanine Aminotransferase 59 U/L (0-40); Albumin Level 3.8 g/dL (3.5-5.0); Alkaline Phosphatase 742 U/L (39-117); Anion Gap 14 (12-20); Aspartate Amino Transferase 64 U/L (5-37); Bilirubin Total 0.3 mg/dL (0.0-1.0); Blood Urea Nitrogen 17 mg/dL (9-16); Calcium 8.9 mg/dL (8.4-10.2); Carbon Dioxide 27 mmol/L (22-29); Chloride 100 mmol/L (96-108); Estimated Glomerular Filt Rate > 60; Glucose Random 121 mg/dL (60-115); Potassium 3.8 mmol/L (3.3-5.1); Sodium 137 mmol/L (135-145); Total Protein 7.1 g/dL (6.5-8.0)
[2022-01-09 12:02] LABS: Band Neutrophils Percent 11 % (3-5); Lymphocytes Absolute Manual 0.7 X10*3/uL (1.2-4.9); Lymphocytes Percent Manual 5 % (20-40); Metamyelocytes Absolute 0.1 X10*3/uL; Metamyelocytes Percent 1 %; Monocytes Absolute Manual 1.6 X10*3/uL (0.1-1.2); Monocytes Percent Manual 11 % (2-11); Neutrophils Absolute Manual 11.8 X10*3/uL (2.0-8.3); Neutrophils Percent Manual 72 % (45-73)
[2022-01-09 12:03] LABS: Hypochromasia 1+ (5-14) /OIF; Macrocytosis 2+ (15-30) /OIF; Microcytosis 2+ (15-30) /OIF; Platelet Estimate NORMAL (NORMAL); Platelet Morphology Comment NORMAL; RBC Morphology NOTED; Tear Drop Cells 1+ (0-2) /OIF
== END 2022-01-09 09:44 | disposition home or self-care (01) ==
LOC: HO.LAB 09:43
PROVIDERS: PCP Internal Medicine; Visit Provider Internal Medicine Medical Oncology
DX: C17.0 Malignant neoplasm of duodenum (principal)
CPT/HCPCS: 36415; 80053; 85007; 85027; 99212

== ENCOUNTER 2022-01-25 07:21 | Outpatient (REF) | payer OTHER, SELFPAY ==
[2022-01-25 08:15] LABS: Basophils Absolute Auto 0.1 X10*3/uL (0.0-0.2); Basophils Percent Auto 0.6 % (0-2); Eosinophils Percent Auto 0.1 % (0-4); Hematocrit 29.3 % (42.0-52.0); Hemoglobin 8.9 g/dl (14.0-18.0); Imm Gran Abs Auto 0.25 X10*3/uL (0.00-0.03); Imm Gran Pct Auto 1.5 % (0.0-0.4); Lymphocytes Absolute Auto 1.2 X10*3/uL (1.2-4.9); MANUAL DIFF FLAG SCAN; Mean Corpuscular HGB Conc 30.4 g/dl (31.0-36.0); Mean Corpuscular Hemoglobin 25.2 pg (27.0-33.0); Monocytes Absolute Auto 1.6 X10*3/uL (0.1-1.2); Monocytes Percent Auto 9.3 % (2-11); Neutrophils Absolute Auto 13.8 x10*3/uL (2.0-8.3); Neutrophils Percent Auto 81.5 % (45-73); Platelet Count 126 X10*3/uL (160-400); Red Blood Count 3.53 X10*6/uL (4.60-5.80); Red Cell Distribution Width 19.8 % (11.0-16.0); SCAN SMEAR FLAG 1; White Blood Count 16.9 X10*3/uL (4.8-10.8)
[2022-01-25 08:38] LABS: Alanine Aminotransferase 45 U/L (0-40); Albumin Level 3.6 g/dL (3.5-5.0); Alkaline Phosphatase 831 U/L (39-117); Anion Gap 13 (12-20); Aspartate Amino Transferase 76 U/L (5-37); Blood Urea Nitrogen 18 mg/dL (9-16); Carbon Dioxide 26 mmol/L (22-29); Chloride 102 mmol/L (96-108); Estimated Glomerular Filt Rate > 60; Glucose Random 100 mg/dL (60-115); Potassium 3.3 mmol/L (3.3-5.1); Sodium 138 mmol/L (135-145); Total Protein 6.7 g/dL (6.5-8.0)
[2022-01-25 08:41] LABS: SLIDE REVIEW VERIFIED
[2022-01-25 08:57] LABS: Bilirubin Total 0.5 mg/dL (0.0-1.0)
== END 2022-01-25 07:22 | disposition home or self-care (01) ==
LOC: HO.LAB 07:21
PROVIDERS: PCP Internal Medicine; Visit Provider Internal Medicine Medical Oncology
DX: C17.0 Malignant neoplasm of duodenum (principal)
CPT/HCPCS: 36415; 80053; 85025; 86850; 86900; 86901

== ENCOUNTER 2022-02-02 11:55 | Day surgery (SDC) | payer OTHER, SELFPAY ==
--- NOTE | 2022-02-01 13:59 | HO.ANESPROP2 ---
Documented by User: Joseline Meza NP 02/01/22 14:02 HPI - Anesthesia Eval Consult details Narrative: 51yo M for Upper Endoscopy s/p EGD 05/2021 with TIVA PMFSH Active Problems Active Problems: All Active Problems (Updated 07/27/21 @ 07:41 by Sangeeta Dover [facility]) Lesion of liver (Acute) Carcinoma of duodenum (Acute) DVT (deep venous thrombosis) (Acute) Duodenal adenocarcinoma (Acute) Past Medical History Medical History Duodenal adenocarcinoma Hypertension Left arm pain Liver masses Pulmonary nodule Family History Family History (Updated 11/04/21 @ 16:03 by Germaine Spencer CMA) Other No family history of cancer Family history of problems with anesthesia: No Surgical History Surgical History History of colonoscopy History of endoscopy History of esophagogastroduodenoscopy (EGD) History of liver biopsy History of Problems with Anesthesia: No Social History Social History Household Members: Spouse and Children Housing: House Are you a primary child care centre director to a significant other at home: No Do you presently have visiting nurse or other home services: No Alcohol intake: never Patient Tobacco Use Status: Never used Tobacco Advance Directives: No Advance Directives Information Provided: Yes service: No Current occupational status: employed Meds Allergies Allergy/AdvReac Type Severity Reaction Status Date / Time bee pollen [bee stings] Allergy Unknown Verified 01/09/22 09:52 Home Medications Medication Instructions Recorded Confirmed Last Taken Type acetaminophen 500 mg tablet 250 mg PO TID PRN Pain, Mild 01/25/21 01/30/22 Unknown History hydrochlorothiazide 25 mg tablet 1 tab PO DAILY 01/25/21 01/30/22 05/31/21 History losartan 25 mg tablet 25 mg PO DAILY 03/04/21 01/30/22 05/31/21 History rivaroxaban 20 mg tablet 20 mg PO DAILY 01/09/22 01/30/22 Unknown History Exam Exam Date and Time: February 01, 2022 1359 Pertinent Lab Results Pertinent Lab Results: Laboratory Tests 01/30/22 01/30/22 09:14 09:38 WBC 13.4 H Hgb 8.2 L Hct 27.5 L Plt Count 156 L Sodium 134 L Potassium 3.8 Chloride 101 Carbon Dioxide 26 BUN 16 Creatinine 0.67 Assessment and Plan Assessment Anesthesia Assessment: Chart Reviewed Final Anesthetic Review Family History of Problems with Anesthesia: No History of Problems with Anesthesia: No Documented by User: Anya Lawrence MD 02/02/22 12:42 [facility] Past Medical History Medical History Duodenal adenocarcinoma Hypertension Left arm pain Liver masses Pulmonary nodule Family History Family History (Updated 11/04/21 @ 16:03 by Germaine Spencer CMA) Other No family history of cancer Surgical History Surgical History History of colonoscopy History of endoscopy History of esophagogastroduodenoscopy (EGD) History of liver biopsy Social History Social History Household Members: Spouse and Children Housing: House Are you a primary child care centre director to a significant other at home: No Do you presently have visiting nurse or other home services: No Alcohol intake: never Patient Tobacco Use Status: Never used Tobacco Advance Directives: No Advance Directives Information Provided: Yes service: No Current occupational status: employed Meds Allergies Allergy/AdvReac Type Severity Reaction Status Date / Time bee pollen [bee stings] Allergy Unknown Verified 01/09/22 09:52 Home Medications Medication Instructions Recorded Confirmed Last Taken Type acetaminophen 500 mg tablet 250 mg PO TID PRN Pain, Mild 01/25/21 01/30/22 Unknown History hydrochlorothiazide 25 mg tablet 1 tab PO DAILY 01/25/21 01/30/22 05/31/21 History losartan 25 mg tablet 25 mg PO DAILY 03/04/21 01/30/22 05/31/21 History rivaroxaban 20 mg tablet 20 mg PO DAILY 01/09/22 01/30/22 Unknown History Exam Airway Mallampati Class: II TM Dist: >3cm Neck ROM: Full Loose/Missing/Broken Teeth: Yes (5?13?) Heart: rr Lungs: cta Assessment and Plan Final Anesthetic Review NPO: Yes ASA Class: II Final Preanesthetic Review: No Changes in Pt Med Stat and Consent Obtained/Reviewed Patient Risk: Low Procedure Risk: Low Anesthetic Plan Anesthetic Plan: MAC:
--- NOTE | 2022-02-02 12:29 | MHC.SHP ---
Pre-Procedural Eval Section A Date of Service: 02/02/22 The patient is an INPATIENT: No The History & Physical has been completed within 30 days and I have reviewed it.: Yes Section B Chief Complaint: Malignant neoplasm of duodenum,anemia,epigastric Allergies: Allergies Allergy/AdvReac Type Severity Reaction Status Date / Time bee pollen [bee stings] Allergy Unknown Verified 01/09/22 09:52 Plan I have reviewed the history and physical and performed a pertinent physical examination on my patient. No changes have occurred unless specified. EGD to assess duodenal cancer Time Spent With Patient Time: Total time managing care of this patient today ____ minutes.
--- NOTE | 2022-02-02 12:30 | W.PM.OPN ---
Operative Note Operative Note Date of Service: 02/02/22 Narrative: Procedure Description: EGD Indication: hx of duodenal cancer Anesthesia: MAC FLEXIBLE TRANSORAL UPPER GASTROINTESTINAL ENDOSCOPY UPPER ENDOSCOPY Consent: Indications for the procedure and potential complications of bleeding, perforation, reaction to medications and missed diagnosis were discussed with the patient and informed consent was obtained. Instrument: Olympus GIF H 190 J mid size upper endoscope Monitoring: Vital signs and clinical assessment, continuous EKG monitoring, Pulse oximetry, Carbon Dioxide monitoring and blood pressure monitoring were done throughout the procedure. Procedure: The patient was placed in the left lateral decubitis position and pre-procedure medications were administered and a bite block was placed. The endoscope was inserted into the mouth and advanced under direct vision to the third part of duodenum. A careful inspection was made as the upper endoscope was withdrawn including a retroflexed examination of the proximal stomach; Findings and interventions are described below. Findings: Larynx:normal Esophagus: GE junction at 40 cm, diaphragm hiatus at 40 cm, no varices or esophagitis. Stomach: Patchy gastric erythema and erosions noted. Biopsies were obtained. Grade 2 flap valve on retroflexed examination of the cardia. Duodenum: Duodenal mass noted as before straddling the bulb and now into the pyloric outlet so has increased in size. It is friable and was bleeding due to scope irritation so hemospray was applied. Intervention: Biopsies as noted above, hemospray Impression/Findings: duodenal mass erosive gastritis--bx taken to r/o recurrent H pylori PLAN: await results of biopsies, prolapsing mass into the pylorum may be causing his pain, may benefit from dicyclomine trial would cont with carafate
[2022-02-02 12:37] VITALS: BP 145/88; PULSE 99; RESP 18; TEMP 37.1; O2SAT 100; BMI 40.8
[2022-02-02 13:17] VITALS: BP 127/67; PULSE 94; RESP 16; TEMP 37; O2SAT 100
[2022-02-02 13:32] VITALS: BP 145/82; PULSE 101; RESP 18; TEMP 37; O2SAT 100
[2022-02-02 13:47] VITALS: BP 145/85; PULSE 100; RESP 18; TEMP 37.2; O2SAT 98
[2022-02-02] MEDS: Mag&Al/Sim/Diphenhyd/Lidocaine 10 ML ORAL.SUSP PO (14:35)
[2022-02-02] MEDS: Alteplase Cath Clear 2 MG VIAL 1 MG INTRACATH ×2 (14:46)
== END 2022-02-02 15:17 | disposition home or self-care (01) ==
PROVIDERS: PCP Internal Medicine; Visit Provider Internal Medicine Gastroenterology
PROC: 0DJ08ZZ Inspection of Upper Intestinal Tract, Via Natural or Artificial Opening Endoscopic (ICD-10-PCS; CPT 43235; principal; 2022-02-02 12:40)
DX: C17.0 Malignant neoplasm of duodenum (principal); D64.9 Anemia, unspecified; R10.13 Epigastric pain; K44.9 Diaphragmatic hernia without obstruction or gangrene
CPT/HCPCS: 43239; 88305; 88342; J1642; J2997

== ENCOUNTER 2022-02-08 07:45 | Outpatient (REF) | payer OTHER, SELFPAY ==
[2022-02-08 08:01] LABS: MANUAL DIFF FLAG NO
[2022-02-08 08:05] LABS: Basophils Absolute Auto 0.1 X10*3/uL (0.0-0.2); Basophils Percent Auto 0.5 % (0-2); Eosinophils Percent Auto 0.1 % (0-4); Hematocrit 28.6 % (42.0-52.0); Hemoglobin 8.8 g/dl (14.0-18.0); Imm Gran Abs Auto 0.31 X10*3/uL (0.00-0.03); Imm Gran Pct Auto 1.8 % (0.0-0.4); Lymphocytes Absolute Auto 0.9 X10*3/uL (1.2-4.9); Lymphocytes Percent Auto 5.5 % (20-40); Mean Corpuscular HGB Conc 30.8 g/dl (31.0-36.0); Mean Corpuscular Volume 84.4 fL (80.0-98.0); Mean Platelet Volume 10.5 fL (9.4-12.4); Monocytes Absolute Auto 1.4 X10*3/uL (0.1-1.2); Monocytes Percent Auto 8.5 % (2-11); Neutrophils Absolute Auto 14.3 x10*3/uL (2.0-8.3); Neutrophils Percent Auto 83.6 % (45-73); Platelet Count 137 X10*3/uL (160-400); Red Blood Count 3.39 X10*6/uL (4.60-5.80); Red Cell Distribution Width 19.9 % (11.0-16.0)
[2022-02-08 08:37] LABS: Alanine Aminotransferase 43 U/L (0-40); Albumin Level 3.4 g/dL (3.5-5.0); Alkaline Phosphatase 981 U/L (39-117); Anion Gap 13 (12-20); Aspartate Amino Transferase 76 U/L (5-37); Bilirubin Total 0.6 mg/dL (0.0-1.0); Blood Urea Nitrogen 18 mg/dL (9-16); Calcium 8.7 mg/dL (8.4-10.2); Carbon Dioxide 24 mmol/L (22-29); Chloride 101 mmol/L (96-108); Estimated Glomerular Filt Rate > 60; Glucose Random 126 mg/dL (60-115); Potassium 3.4 mmol/L (3.3-5.1); Sodium 135 mmol/L (135-145); Total Protein 6.5 g/dL (6.5-8.0)
== END 2022-02-08 07:46 | disposition home or self-care (01) ==
LOC: HO.LAB 07:45
PROVIDERS: PCP Internal Medicine; Visit Provider Internal Medicine Medical Oncology
DX: C17.0 Malignant neoplasm of duodenum (principal)
CPT/HCPCS: 36415; 80053; 82378; 85025

== ENCOUNTER 2022-03-06 16:24 | Inpatient (IN) | payer OTHER, SELFPAY ==
--- NOTE | ~2022-03-06 | CT_ITS ---
EXAMINATION: CT ABDOMEN AND PELVIS WITH CONTRAST CLINICAL INFORMATION: Jaundice. Due to dental cancer. COMPARISON: CT abdomen pelvis 10/26/2021 TECHNIQUE: Multidetector volumetric images were obtained from the superior aspect of the liver through the pubic symphysis following administration 85 mL of Omnipaque 350 intravenous contrast. Sagittal and coronal reformatted images were obtained on the technologist's workstation. Oral contrast: No This CT examination was performed using dose optimization techniques as appropriate, variously including the following: *Automated exposure control *Adjustment of mA and/or kV according to patient size (this includes techniques or standardized protocols for targeted exams where dose is matched to indication/reason for exam; i.e. extremities or head) *Use of iterative reconstruction technique DLP: 663 mGy-cm FINDINGS: LUNG BASES: There are multiple lung nodules consistent metastatic disease the largest nodule visualized in the right lower lobe measures 3.2 x 3.3 cm axial image 6/5 the heart size is normal. No pericardial effusion seen. LIVER, GALLBLADDER, AND BILIARY TREE: The liver is enlarged in size and measures 20 cm in craniocaudad length. Normal shape, and heterogeneous attenuation. Multiple liver lesions consistent metastatic disease. The lesions have increased in size. The largest lesion in the right lobe posterior segment measures 6.1 x 5.5 cm on axial image 20/3. Previously same lesion measured 4.3 x 4.5 cm on axial image 20/3 10/26/2021. There is hyperdense material within the gallbladder. PANCREAS: Unremarkable. SPLEEN: There is interval hypodense wedge-shaped areas suspicious for infarct versus metastatic disease. There is mild splenomegaly. Spleen measures 15.5 cm in a craniocaudad length and 15 cm in AP dimension. ADRENAL GLANDS: Unremarkable. KIDNEYS AND URETERS: The kidneys are normal in size, shape, and attenuation. No hydronephrosis, hydroureter, or calculi seen. No perinephric stranding. There is a known upper pole left renal cyst measuring 3.8 x 4.0 cm. There is a 2 cm hypodensity in lower pole right kidney measuring 49 Hounsfield units likely a solid lesion. It was not well visualized on the previous exam. BLADDER: Unremarkable. GASTROINTESTINAL TRACT: There is scattered stool and gas in the colon without distention. There is mild thickening of the second segment of the duodenum similar to previous study however evaluation is limited due to lack of oral contrast. Postsurgical anselmo and probable coils are seen adjacent to the head of pancreas and the second segment of the duodenum. There is a calcified density adjacent to the cecum likely appendicolith with minimal fluid inferior to the cecum but no fat stranding seen. ABDOMINAL WALL: No significant hernia is appreciated. LYMPH NODES: There are small lymph nodes suspected posterior head of pancreas and adjacent to the second third segment of the duodenum. There are also aortocaval lymph nodes. VASCULAR: Unremarkable. PELVIC VISCERA: There is small amount of free fluid in the pelvis.. OSSEOUS STRUCTURES: No aggressive lytic or sclerotic process seen.. CT/CT abdomen pelvis w IV con IMPRESSION: 1. Multiple new lung nodules consistent with metastatic disease. 2. Multiple liver lesions consistent with metastatic disease. The lesions have increased in size since the previous CT 10/26/2021. 3. There is mild splenomegaly. There are wedge-shaped hypodense areas in the spleen suspicious for infarct versus metastatic disease. 4. There is mild thickening of the second segment of the duodenum similar to previous study however evaluation is limited due to lack of oral contrast. 5. There are small lymph nodes adjacent to the second and third segment of the duodenum and in the aortocaval region. 6. Upper pole left renal cyst is stable. There is a 2 cm hypodensity in lower pole right kidney not well visualized on the previous study. Question solid lesion. 7. Appendicolith most likely with minimal fluid inferior to the cecum. No appendicitis suspected. Small amount of free fluid in the pelvis Fleischner guidelines were followed.
--- NOTE | ~2022-03-06 | XR_ITS ---
EXAMINATION: XR CHEST CLINICAL INFORMATION: Shortness of breath. COMPARISON: CT chest 12/15/2021 TECHNIQUE: Frontal view of the chest was obtained. 5:17 PM FINDINGS: Right IJ catheter tip at cavoatrial junction. No pneumothorax. Lung volume low. This causes accentuation of bronchovascular markings. No overt pulmonary edema. No focal consolidation. There is no pleural effusion. Heart size is normal. Cardiac mediastinal contours are normal. XR/XR chest 1V IMPRESSION: Right IJ catheter tip at cavoatrial junction. No pneumothorax.
--- NOTE | ~2022-03-06 | CT_ITS ---
EXAMINATION: CT ABDOMEN AND PELVIS WITHOUT AND WITH CONTRAST CLINICAL INFORMATION: CBD obstruction COMPARISON: CT of the abdomen and pelvis 03/06/2022 TECHNIQUE: Multidetector volumetric imaging was performed of the abdomen and pelvis before and after the IV administration of 85 mL of Omnipaque 300 intravenous contrast. Sagittal and coronal reformatted images were obtained on the technologist's workstation. This CT examination was performed using dose optimization techniques as appropriate, variously including the following: *Automated exposure control *Adjustment of mA and/or kV according to patient size (this includes techniques or standardized protocols for targeted exams where dose is matched to indication/reason for exam; i.e. extremities or head) *Use of iterative reconstruction technique DLP: 1182 mGy-cm FINDINGS: LUNG BASES: Redemonstration of multiple lung masses at lung bases. LIVER, GALLBLADDER, AND BILIARY TREE: Redemonstration of multiple hypodense masses throughout both lobes of liver consistent with metastatic disease. Liver is enlarged. Right lobe of liver measuring 24 cm superior-inferior. There is intrahepatic and extrahepatic bile duct dilatation. CBD at the matt hepatis measures 2.4 cm. This is unchanged since CAT scan 03/06/2022. Gallbladder is contracted. Hyperdense material in the lumen of the gallbladder, vicarious excretion of contrast which was administered yesterday for prior CAT scan exam. PANCREAS: Artifact from embolization material adjacent to the head of the pancreas. Pancreas is atrophic. No inflammation, mass or pancreatic duct dilatation. SPLEEN: Spleen is enlarged measuring 16 cm superior inferior. Redemonstration of the wedge-shaped hypodense area consistent with infarct (versus metastatic disease). No new splenic lesion. ADRENAL GLANDS: Unremarkable KIDNEYS AND URETERS: There are hypodense area in the lower pole right kidney redemonstrated about the final margins. Axial image 78/166 series 5., Coronal image 76/492 series 6. No hydronephrosis or renal calculus. No change of the left renal parapelvic and upper pole renal cyst. No follow-up imaging is recommended for simple renal cyst. BLADDER: Unremarkable GASTROINTESTINAL TRACT: There is a moderate to large volume of stool in the colon. The appendix is nonvisualized . Redemonstration of the mild thickening of the second portion of the duodenum similar prior studies. No additional lesion of the gastrointestinal tract. No bowel obstruction. No hiatal hernia. Calcification adjacent to the tip of the cecum redemonstrated. Axial image 107/166 series 5. This may be an appendicolith the appendix is not well seen. No inflammatory changes in mesentery right lower quadrant. MESENTERY: There is a small volume of abdominal ascites. ABDOMINAL WALL: No significant hernia is appreciated. LYMPH NODES: No significant lymphadenopathy. Small lymph nodes again noted posterior to the head of the pancreas adjacent to the duodenum. VASCULAR: Unremarkable PELVIC VISCERA: Unremarkable OSSEOUS STRUCTURES: Unremarkable CT/CT abdomen pelvis wo/w IV con IMPRESSION: 1. Redemonstration of multiple lung masses at lung bases. 2. Redemonstration of multiple hypodense masses in the liver consistent with metastatic disease. 3. Persistent intrahepatic and extrahepatic bile duct dilatation. 4. Splenomegaly. Redemonstration of the wedge-shaped hypodense area in the spleen consistent with infarct (versus metastatic disease). 5. Small volume of abdominal ascites. 6. Redemonstration of the mild thickening of the second portion of the duodenum. No additional lesion of the gastrointestinal tract. Fleischner guidelines were followed.
--- NOTE | 2022-03-06 16:29 | ED_ITS ---
HPI - Abdominal Pain General Chief Complaint: Abdominal Pain Stated Complaint: abdominal pain from oncology Time Seen by Provider: 03/06/22 16:26 Source: patient Mode of arrival: ambulatory Limitations: no limitations History of Present Illness HPI narrative: Patient sent from Oncology Clinic for abdominal pain. 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 patient been complaining of increased abdominal pain lab workup showed elevated bilirubin from 2.2 on 02/27 to 15.1 today Patient denied any fever or chills no nausea or vomiting reports pale colored stool and dark urine patient has poor appetite feels bloated ++ itching no confusion no bruising Related Data Home Medications Medication Instructions Recorded Confirmed acetaminophen 500 mg tablet 250 mg PO TID PRN Pain, Mild 01/25/21 01/30/22 hydrochlorothiazide 25 mg tablet 1 tab PO DAILY 01/25/21 01/30/22 losartan 25 mg tablet 25 mg PO DAILY 03/04/21 01/30/22 rivaroxaban 20 mg tablet 20 mg PO DAILY 01/09/22 01/30/22 gabapentin 300 mg capsule 1 cap PO BEDTIME 03/06/22 metoclopramide HCl 10 mg tablet 1 tab PO QID 03/06/22 Previous Rx's Medication Instructions Recorded omeprazole 40 mg capsule,delayed 40 mg PO DAILY #60 caps 01/09/22 release sucralfate 100 mg/mL oral 10 ml PO BID #1,000 mL 01/09/22 suspension (Carafate) dicyclomine 10 mg capsule 10 mg PO TID #90 caps 02/02/22 duloxetine 30 mg capsule,delayed 30 mg PO DAILY #90 caps 02/09/22 release oxycodone 5 mg tablet 5 mg PO Q6H PRN Breakthrough Pain, 02/17/22 Moderate #60 tabs Allergies Allergy/AdvReac Type Severity Reaction Status Date / Time bee pollen [bee stings] Allergy Unknown Verified 01/09/22 09:52 Review of Systems Review of Systems Yes all other systems are reviewed and are negative PMFSH Past Medical History Medical History Duodenal adenocarcinoma Hypertension Left arm pain Liver masses Pulmonary nodule Surgical History History of colonoscopy History of endoscopy History of esophagogastroduodenoscopy (EGD) History of liver biopsy Family History Family History Other No family history of cancer Social History Social History Household Members: Spouse and Children Housing: House Are you a primary child care supervisor to a significant other at home: No Do you presently have visiting nurse or other home services: No Alcohol intake: never Patient Tobacco Use Status: Never used Tobacco Advance Directives: Yes Advance Directives Information Provided: Yes Advance Directives on File: No service: No Current occupational status: employed Physical Exam ED Vital Signs: Vital Signs - 24 hr 03/06/22 16:46 03/06/22 20:07 Temperature 98.0 F 98.4 F Pulse Rate 96 108 H Respiratory Rate 20 16 Blood Pressure 158/101 H 154/109 H Pulse Oximetry 98 94 Oxygen Delivery Method Room Air Room Air BMI result Body Mass Index 28.8 Appearance: Alert. Oriented X3. No acute distress. Eyes: PERRLA, No Nystagmus pallor++, icterus+++ ENT: Pharynx normal. Oral Mucosa moist Neck: Normal inspection. Neck supple. CVS: Normal heart rate and rhythm. Pulses normal. Respiratory: No respiratory distress. Equal air entry bilateral, no wheezing/rales/rhonchi Abdomen: Soft and nontender. Bowel sounds are present, no mass palpable, no CVA tenderness Skin: Skin warm and dry. Normal skin color. Normal skin turgor. Extremities: No lower extremity edema. No calf tenderness Neuro: Oriented X 3. No motor deficit. No sensory deficit.No cerebellar signs , cranial nerves II-XII intact Medical Decision Making Medical Decision Making MDM Narrative: Patient obstructive jaundice with adrenal carcinoma duodenum with hepatic and lung Mets will admit patient for further evaluation Consult Healthcare Provider Management of the patient was discussed with: Hospitalist Lab Data [facility] Lab Attestation statement: I reviewed the patient's lab results. Labs: Lab Results 03/06/22 03/06/22 Range/Units 17:36 17:36 PT 13.1 (10.0-13.1) SEC INR 1.1 (0.9-1.1) APTT 32.6 (26.0-36.4) SEC COVID-19 ([facility]) Negative (Negative) COVID-19 Clin Com See Note Medications Administered Discontinued Medications Generic Name Dose Route Start Last Admin Trade Name Olivia PRN Reason Stop Dose Admin Sodium Chloride 1,000 mls @ 999 mls/hr 03/06/22 16:35 03/06/22 20:23 Ns IV 03/06/22 17:35 Infused .Q1H1M ONE Infusion Iohexol 100 ml 03/06/22 17:54 03/06/22 17:54 Iohexol 350 Mg/Ml 100 Ml Infus..Btl IV 03/06/22 17:55 85 ml ONCE ONE Administration Morphine Sulfate 4 mg 03/06/22 16:36 03/06/22 17:33 Morphine Sulfate 4 Mg/Ml Cartridge IVPUSH 03/06/22 16:37 4 mg ONCE ONE Administration Protocol Ondansetron HCl 4 mg 03/06/22 16:36 03/06/22 17:36 Ondansetron Hcl 4 Mg/2 Ml Vial IVPUSH 03/06/22 16:37 4 mg ONCE ONE Administration Discharge Plan Discharge Clinical Impression: Duodenal adenocarcinoma, Metastatic cancer, Obstructive jaundice due to malignant neoplasm Patient Disposition: Admitted As Inpatient
[2022-03-06 16:46] VITALS: BP 158/101; PULSE 96; RESP 20; TEMP 36.7; O2SAT 98; BMI 28.8
[2022-03-06] MEDS: Morphine Sulfate 4 MG/ML CARTRIDGE IVPUSH ×2 (17:33→22:09)
[2022-03-06] MEDS: 0.9 % Sodium Chloride 1,000 ML 999 ML IV ×2 (17:33→22:10)
[2022-03-06] MEDS: ondansetron HCL 4 MG/2 ML VIAL IVPUSH (17:36)
[2022-03-06 17:49] LABS: INTERNATIONAL NORM RATIO 1.1 (0.9-1.1); Prothrombin Time 13.1 SEC (10.0-13.1)
[2022-03-06 17:52] LABS: Partial Thromboplastin Time 32.6 SEC (26.0-36.4)
[2022-03-06] MEDS: iohexoL 350 MG/ML 100 ML INFUS..BTL IV (17:54)
[2022-03-06 18:03] LABS: COVID-19 Test Negative (Negative); IDNOW Serial# BCCEAD1C
[2022-03-06 20:07] VITALS: BP 154/109; PULSE 108; RESP 16; TEMP 36.9; O2SAT 94
--- NOTE | 2022-03-06 20:25 | PC.NURSE ---
report received from [facility] OSHEA - assumed care of patient at 1900 - pt resting comfortably on stretcher, at bedside. patient states his belly pain is back up to 7/10. aware, requested pain meds. will continue to monitor. call edge within reach
--- NOTE | 2022-03-06 20:46 | P.HPHOSP_ITS ---
History of Present Illness Date of Service: 03/06/22 Chief Complaint: Abdominal Pain This is a 52-year-old male with pertinent history of metastatic duodenal adeno carcinoma s/p chemotherapy, essential hypertension, gastroesophageal reflux disease who was sent from oncologist's office due to elevated bilirubin. P brent got blood work at his oncologist's office and his bilirubin was elevated to 15.1 from 2.2 ( on 02/27) and he was sent to the ER for further evaluation. States he has ongoing abdominal pain the last 1 month which has been constant , nonradiating and progressive. Also has associated nausea. Complains of pale colored stools and yellowish urine. Patient denies fever, chills, chest discomfort, palpitations, shortness of breath. Admits poor appetite And generalized weakness. In the emergency department, CT with multiple new lung nodules, multiple liver lesions consistent with metastatic disease Review of Systems Constitutional: Constitutional: Reports fatigue, Reports lethargy and Reports malaise Cardiovascular: Cardiovascular: Reports no additional cardiovascular complaints Respiratory: Respiratory: Reports no additional respiratory complaints Gastrointestinal: Gastrointestinal: Reports abdominal pain and Reports nausea Endocrine: Endocrine: Reports fatigue [facility] Medical History Duodenal adenocarcinoma Hypertension Left arm pain Liver masses Pulmonary nodule Family History Other No family history of cancer Surgical History History of colonoscopy History of endoscopy History of esophagogastroduodenoscopy (EGD) History of liver biopsy Social History Household Members: Spouse and Children Housing: House Are you a primary wound care specialist to a significant other at home: No Do you presently have visiting nurse or other home services: No Alcohol intake: never Patient Tobacco Use Status: Never used Tobacco Advance Directives: Yes Advance Directives Information Provided: Yes Advance Directives on File: No service: No Current occupational status: employed Meds Allergies Allergy/AdvReac Type Severity Reaction Status Date / Time bee pollen [bee stings] Allergy Unknown Verified 01/09/22 09:52 Active Medications: Current Medications Morphine Sulfate (Morphine Sulfate 4 Mg/Ml Cartridge) 4 mg IVPUSH Q4H PRN; Protocol PRN Reason: Pain, Severe (Pain Scale 7-10) Ondansetron HCl (Ondansetron Hcl 4 Mg/2 Ml Vial) 4 mg IVPUSH Q8H PRN PRN Reason: Nausea and Vomiting Pharmacy Consult (Consult Rx Perform Med Rec) 1 each MISCELLANE ONCE PRN PRN Reason: Consult order Sodium Chloride (0.9 % Sodium Chloride Flush 3 Ml Syringe) 3 ml IVFLUSH [facility] Medications Medication Instructions Recorded Confirmed Last Taken Type acetaminophen 500 mg tablet 650 mg PO TID PRN Pain, Mild 01/25/21 03/06/22 03/06/22 History hydrochlorothiazide 25 mg tablet 1 tab PO DAILY 01/25/21 03/06/22 03/06/22 History losartan 25 mg tablet 25 mg PO DAILY 03/04/21 03/06/22 03/06/22 History gabapentin 300 mg capsule 1 cap PO BEDTIME 03/06/22 03/06/22 03/05/22 History Physical Exam Vital Signs and Narrative: Vital Signs: Last Vital Signs Temp 98.4 F 03/06/22 20:07 Pulse 108 H 03/06/22 20:07 Resp 16 03/06/22 20:07 BP 154/109 H 03/06/22 20:07 Pulse Ox 94 03/06/22 20:07 O2 Del Method 03/06/22 20:07 BMI result Body Mass Index 28.8 Middle-aged male lying in bed in no distress Neck supple, scleral icterus tachycardic with regular rhythm, S1-S2 heard Regular breath sounds bilaterally, no wheezing or crackles appreciated Abdomen with generalized tenderness to deep palpation, no guarding, no rigidity, no rebound tenderness Patient is awake, alert and oriented to self, place, time and person ; no focal motor deficit Psych: Normal mood Results Labs Labs: Laboratory Results - last 24 hr 03/06/22 03/06/22 17:36 17:36 PT 13.1 INR 1.1 APTT 32.6 COVID-19 ([facility]) Negative COVID-19 Clin Com See Note Imaging Radiologist's Impressions: Impressions Chest X-Ray 03/06/22 17:21 IMPRESSION: Right IJ catheter tip at cavoatrial junction. No pneumothorax. Abdomen/Pelvis CT 03/06/22 18:03 IMPRESSION: 1. Multiple new lung nodules consistent with metastatic disease. 2. Multiple liver lesions consistent with metastatic disease. The lesions have increased in size since the previous CT 10/26/2021. 3. There is mild splenomegaly. There are wedge-shaped hypodense areas in the spleen suspicious for infarct versus metastatic disease. 4. There is mild thickening of the second segment of the duodenum similar to previous study however evaluation is limited due to lack of oral contrast. 5. There are small lymph nodes adjacent to the second and third segment of the duodenum and in the aortocaval region. 6. Upper pole left renal cyst is stable. There is a 2 cm hypodensity in lower pole right kidney not well visualized on the previous study. Question solid lesion. 7. Appendicolith most likely with minimal fluid inferior to the cecum. No appendicitis suspected. Small amount of free fluid in the pelvis Fleischner guidelines were followed. Assessment and Plan (1) Carcinoma of duodenum: Status: Acute (2) Obstructive jaundice due to malignant neoplasm: Status: Acute (3) Metastatic cancer: Status: Acute Plan This is a 52-year-old male with 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 #. Obstructive jaundice and abdominal pain in a pt with: #. Metastatic duodenal adenocarcinoma - increased lung nodules and liver lesions consistent with metastatic disease noted on CT scan. No biliary obstruction. Consulting Oncology. Ordered MRCP and MRI to delineate the anatomy. Consulting general surgery for possible biliary stent placement. Will admit with IV p.r.n. pain control. #. Wedge-shaped hypodense areas in the spleen: Infarct versus metastatic disease. Follow-up on MRI #. Hypertension - Continue hydrochlorothiazide, hold ARB in anticipation of procedure #. GERD: On PPI #. Chronic normocytic anemia: Hemoglobin above transfusion threshold DVT Prophylaxis: Mechanical. Hold Lovenox until general surgery evaluation Cardiac diet Full code Admit as inpatient and will require two night minimum hospital stay for evaluation of obstructive jaundice. Specialist consult pending Time Spent With Patient Time: Total time managing care of this patient today ____ minutes. Quality Stroke Does the patient have a stroke diagnosis?: No VTE Prior VTE?: No VTE Risk Level:: Medical - moderate - high VTE Device Contraindication: N/A - Device Ordered VTE Drug Contraindication: Treatment Not Indicated
--- NOTE | 2022-03-06 20:46 | PHA.MEDREC ---
Pharmacy Consult ? Medication Reconciliation Pharmacy has completed the medication reconciliation. Patient states he is not on the rivaroxaban 20mg tab as he was told to stop 5 days ago
[2022-03-06 21:54] LABS: Bilirubin Direct 11.3 mg/dL (0.0-0.5)
[2022-03-06] MEDS: Gabapentin 300 MG CAPSULE PO (22:10)
[2022-03-06 23:18] VITALS: BP 122/91; PULSE 101; RESP 18; TEMP 37.2; O2SAT 95
[2022-03-07] MEDS: Morphine Sulfate 4 MG/ML CARTRIDGE IVPUSH ×3 (00:53→08:46)
[2022-03-07] MEDS: ondansetron HCL 4 MG/2 ML VIAL IVPUSH (00:53)
[2022-03-07] MEDS: Omeprazole 40 MG CAPSULE.DR PO (05:37)
[2022-03-07 06:16] LABS: MANUAL DIFF FLAG NO
[2022-03-07 06:26] LABS: Basophils Percent Auto 0.3 % (0-2); Eosinophils Absolute Auto 0.1 X10*3/uL (0.0-0.4); Eosinophils Percent Auto 0.6 % (0-4); Hematocrit 31.9 % (42.0-52.0); Hemoglobin 10.2 g/dl (14.0-18.0); Imm Gran Abs Auto 0.05 X10*3/uL (0.00-0.03); Imm Gran Pct Auto 0.5 % (0.0-0.4); Lymphocytes Absolute Auto 0.8 X10*3/uL (1.2-4.9); Lymphocytes Percent Auto 7.2 % (20-40); Mean Corpuscular Hemoglobin 26.2 pg (27.0-33.0); Mean Corpuscular Volume 81.8 fL (80.0-98.0); Mean Platelet Volume 11.1 fL (9.4-12.4); Monocytes Absolute Auto 1.2 X10*3/uL (0.1-1.2); Monocytes Percent Auto 11.3 % (2-11); Neutrophils Absolute Auto 8.6 x10*3/uL (2.0-8.3); Neutrophils Percent Auto 80.1 % (45-73); Platelet Count 182 X10*3/uL (160-400); White Blood Count 10.7 X10*3/uL (4.8-10.8)
[2022-03-07 06:35] LABS: Alanine Aminotransferase 68 U/L (0-40); Albumin Level 2.6 g/dL (3.5-5.0); Alkaline Phosphatase 1467 U/L (39-117); Anion Gap 15 (12-20); Aspartate Amino Transferase 192 U/L (5-37); Blood Urea Nitrogen 12 mg/dL (9-16); Calcium 8.3 mg/dL (8.4-10.2); Carbon Dioxide 22 mmol/L (22-29); Chloride 96 mmol/L (96-108); Creatinine Clr Calc Pharmacy 144.7; Estimated Glomerular Filt Rate > 60; Glucose Random 88 mg/dL (60-115); Potassium 3.5 mmol/L (3.3-5.1); Sodium 129 mmol/L (135-145); Total Protein 6.2 g/dL (6.5-8.0)
--- NOTE | 2022-03-07 07:14 | PC.NURSE ---
report given to DAYO Cleary pt is alert and oriented resting in bed no signs of acute distress notice breathing equally unlabored
[2022-03-07 07:58] VITALS: BP 135/90; PULSE 104; RESP 18; TEMP 36.7; O2SAT 96
[2022-03-07] MEDS: Dicyclomine HCl 10 MG CAPSULE PO ×2 (08:46→16:31)
[2022-03-07] MEDS: DULoxetine HCl 30 MG CAPSULE.DR PO (08:46)
[2022-03-07] MEDS: hydroCHLOROthiazide 25 MG TABLET PO (08:46)
[2022-03-07] MEDS: 0.9 % Sodium Chloride Flush 3 ML SYRINGE IVFLUSH (08:47)
--- NOTE | 2022-03-07 08:57 | PC.NURSE ---
pt is a/o x 4 no sob/olga noted lungs - diminished. heart sounds - regular. abd round distended, bs + x 4 quads. no edema noted. pt aware of plan of care.
[2022-03-07] MEDS: Mineral OiL enema 133 ML ENEMA PR (09:33)
--- NOTE | 2022-03-07 11:35 | HO.PM.IMPN ---
Subjective Subjective Date of Service: 03/07/22 Review of Systems Follow up obstructive jaundice no pain at this time sitting up in bed Physical Exam Vital Signs: Vital Signs: Last Vital Signs Temp 98.0 F 03/07/22 07:58 Pulse 104 H 03/07/22 07:58 Resp 18 03/07/22 07:58 BP 135/90 H 03/07/22 07:58 Pulse Ox 96 03/07/22 07:58 O2 Del Method 03/07/22 07:58 BMI result Body Mass Index 28.8 Objective Data Active Medications Acetaminophen (Acetaminophen 325 Mg Tablet) 650 mg PO TID PRN PRN Reason: Pain, Mild Dicyclomine HCl (Dicyclomine Hcl 10 Mg Capsule) 10 mg PO TID [facility] Last Admin: 03/07/22 08:46 Dose: 10 mg Documented By: FARNAZ Duloxetine HCl (Duloxetine Hcl 30 Mg Capsule.) 30 mg PO DAILY [facility] Last Admin: 03/07/22 08:46 Dose: 30 mg Documented By: FARNAZ Gabapentin (Gabapentin 300 Mg Capsule) 300 mg PO BEDTIME [facility] Last Admin: 03/06/22 22:10 Dose: 300 mg Documented By: RACHAEL-DIYA Hydrochlorothiazide (Hydrochlorothiazide 25 Mg Tablet) 25 mg PO DAILY [facility]; Protocol Last Admin: 03/07/22 08:46 Dose: 25 mg Documented By: FARNAZ Morphine Sulfate (Morphine Sulfate 4 Mg/Ml Cartridge) 4 mg IVPUSH Q4H PRN; Protocol PRN Reason: Pain, Severe (Pain Scale 7-10) Last Admin: 03/07/22 08:46 Dose: 4 mg Documented By: FARNAZ Omeprazole (Omeprazole 40 Mg Capsule.) 40 mg PO DAILY@0630 [facility] Last Admin: 03/07/22 05:37 Dose: 40 mg Documented By: RACHAEL-FRANCISCOICL Ondansetron HCl (Ondansetron Hcl 4 Mg/2 Ml Vial) 4 mg IVPUSH Q8H PRN PRN Reason: Nausea and Vomiting Last Admin: 03/07/22 00:53 Dose: 4 mg Documented By: RACHAEL-ANICL Pharmacy Consult (Consult Rx Perform Med Rec) 1 each MISCELLANE ONCE PRN PRN Reason: Consult order Sodium Chloride (0.9 % Sodium Chloride Flush 3 Ml Syringe) 3 ml IVFLUSH QSHIFT [facility] Last Admin: 03/07/22 08:47 Dose: 3 ml Documented By: SCOC Labs 03/07/22 05:52 03/07/22 05:52 Labs: Laboratory Results - last 24 hr 03/06/22 03/06/22 03/06/22 17:36 17:36 21:29 MCV MCH MCHC RDW Plt Count MPV Immature Gran % (Auto) Neut % (Auto) Lymph % (Auto) Wilkin % (Auto) Eos % (Auto) Baso % (Auto) Lymph # (Auto) Wilkin # (Auto) Eos # (Auto) Baso # (Auto) Abs Immat Gran (auto) Absolute Neuts (auto) Absolute Nucleated RBC Nucleated RBC % (auto) PT 13.1 INR 1.1 APTT 32.6 Anion Gap Estim Creat Clear Calc Estimated GFR Random Glucose Calcium Total Bilirubin Direct Bilirubin 11.3 H AST ALT Alkaline Phosphatase Total Protein Albumin COVID-19 ([facility]) Negative COVID-19 Clin Com See Note 03/07/22 03/07/22 05:52 05:52 MCV 81.8 MCH 26.2 L MCHC 32.0 RDW 18.0 H Plt Count 182 MPV 11.1 Immature Gran % (Auto) 0.5 H Neut % (Auto) 80.1 H Lymph % (Auto) 7.2 L Wilkin % (Auto) 11.3 H Eos % (Auto) 0.6 Baso % (Auto) 0.3 Lymph # (Auto) 0.8 L Wilkin # (Auto) 1.2 Eos # (Auto) 0.1 Baso # (Auto) 0.0 Abs Immat Gran (auto) 0.05 H Absolute Neuts (auto) 8.6 H Absolute Nucleated RBC 0.000 Nucleated RBC % (auto) 0.0 PT INR APTT Anion Gap 15 Estim Creat Clear Calc 144.7 Estimated GFR > 60 Random Glucose 88 Calcium 8.3 L Total Bilirubin 16.0 H Direct Bilirubin AST 192 H ALT 68 H Alkaline Phosphatase 1467 H Total Protein 6.2 L Albumin 2.6 L COVID-19 ([facility]) COVID-19 Clin Com Assessment and Plan Plan This is a 52-year-old male with 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 Obstructive jaundice and abdominal pain with hx of Metastatic duodenal adenocarcinoma increased lung nodules and liver lesions consistent with metastatic disease noted on CT scan.? No biliary obstruction.? Oncology consult pending Radiology suggested repeating abd CT with oral and IV contrast rather than MRI GI not rec ERCP as mass is friable and high risk for bleeding pain control. constipation fleets enema Wedge-shaped hypodense areas in the spleen Infarct versus metastatic disease.?more likely mets as patient has been on Hypertension Continue hydrochlorothiazide, hold ARB in anticipation of procedure GERD On PPI Chronic normocytic anemia Hemoglobin above transfusion threshold DVT Prophylaxis: Mechanical.? Hold Lovenox until general surgery evaluation attending Dr. Butts Full code continued hospital stay for evaluation of obstructive jaundice.? Specialist consult pending Time Spent With Patient Time: Total time managing care of this patient today ____ minutes. Quality Stroke Does the patient have a stroke diagnosis?: No VTE Prior VTE?: No VTE Risk Level:: Medical - moderate - high VTE Device Contraindication: N/A - Device Ordered VTE Drug Contraindication: Treatment Not Indicated
--- NOTE | 2022-03-07 12:17 | P.CNGI_ITS ---
History of Present Illness Data of Consult Service Date: 03/07/22 Requesting physician: Marisabel Simpson Primary Care Provider: Robert Webster III, MD HPI Reason for consult: jaundice 52-year-old male with history of metastatic duodenal adeno carcinoma receiving chemotherapy, duodenal artery embolization for GIB, essential hypertension, gastroesophageal reflux disease, upper limb DVT who I am seeing for assessment for jaundice. Patient was admitted after he got blood work at his oncologist's office and his bilirubin was elevated to 15.1 from 2.2 ( on 02/27) . He has constant epigastric gnawing pain, non radiating and constant with nausea for 1 month with occ episodic non bloody emesis. Also noted pale colored stools and yellowish urine with weakness and poor appetite. He denies fever, chills, chest discomfort, palpitations, shortness of breath CT revealed multiple new lung nodules, multiple liver lesions consistent with metastatic disease worse than before, possible splenic mets as well. Review of Systems Review of Systems: Constitutional : , No Fever, No Chills ENT/Mouth : No sore throat, No Rhinorrhea Eyes: No Swelling, No Redness Cardiovascular : No Chest Pain, No SOB, No Edema Respiratory : No Cough, No Sputum, No Wheezing Gastrointestinal : see HPI Genitourinary : NO Dysuria, No Urinary Frequency, No Hematuria, No Urgency Musculoskeletal : No joint pain, No Myalgias, No Joint Swelling Skin : No Skin Lesions, No rash Neuro : + Weakness, No Numbness, No Dizziness, No Headache Psych : No Anxiety/Panic, No Depression Heme/Lymph: No Bruising, No Lymphadenopathy Endocrine : No Polyuria, No Polydipsia All other systems reviewed and are negative. [facility] Past Medical History Medical History Duodenal adenocarcinoma Hypertension Left arm pain Liver masses Pulmonary nodule Family History Family History Other No family history of cancer Surgical History Surgical History History of colonoscopy History of endoscopy History of esophagogastroduodenoscopy (EGD) History of liver biopsy Social History Social History Household Members: Spouse and Children Housing: House Are you a primary urgent care to a significant other at home: No Do you presently have visiting nurse or other home services: No Alcohol intake: never Patient Tobacco Use Status: Never used Tobacco service: No Current occupational status: employed Meds Allergies Allergy/AdvReac Type Severity Reaction Status Date / Time bee pollen [bee stings] Allergy Unknown Verified 01/09/22 09:52 Active Medications: Current Medications Acetaminophen (Acetaminophen 325 Mg Tablet) 650 mg PO TID PRN PRN Reason: Pain, Mild Dicyclomine HCl (Dicyclomine Hcl 10 Mg Capsule) 10 mg PO TID [facility] Last Admin: 03/07/22 08:46 Dose: 10 mg Duloxetine HCl (Duloxetine Hcl 30 Mg Capsule.) 30 mg PO DAILY [facility] Last Admin: 03/07/22 08:46 Dose: 30 mg Gabapentin (Gabapentin 300 Mg Capsule) 300 mg PO BEDTIME [facility] Last Admin: 03/06/22 22:10 Dose: 300 mg Hydrochlorothiazide (Hydrochlorothiazide 25 Mg Tablet) 25 mg PO DAILY [facility]; Protocol Last Admin: 03/07/22 08:46 Dose: 25 mg Morphine Sulfate (Morphine Sulfate 4 Mg/Ml Cartridge) 4 mg IVPUSH Q4H PRN; Protocol PRN Reason: Pain, Severe (Pain Scale 7-10) Last Admin: 03/07/22 08:46 Dose: 4 mg Omeprazole (Omeprazole 40 Mg Capsule.) 40 mg PO DAILY@0630 [facility] Last Admin: 03/07/22 05:37 Dose: 40 mg Ondansetron HCl (Ondansetron Hcl 4 Mg/2 Ml Vial) 4 mg IVPUSH Q8H PRN PRN Reason: Nausea and Vomiting Last Admin: 03/07/22 00:53 Dose: 4 mg Pharmacy Consult (Consult Rx Perform Med Rec) 1 each MISCELLANE ONCE PRN PRN Reason: Consult order Sodium Chloride (0.9 % Sodium Chloride Flush 3 Ml Syringe) 3 ml IVFLUSH QSHIFT [facility] Last Admin: 03/07/22 08:47 Dose: 3 ml Home Medications Medication Instructions Recorded Confirmed Last Taken Type acetaminophen 500 mg tablet 650 mg PO TID PRN Pain, Mild 01/25/21 03/06/22 03/06/22 History hydrochlorothiazide 25 mg tablet 1 tab PO DAILY 01/25/21 03/06/2203/06/23 His tory losartan 25 mg tablet 25 mg PO DAILY 03/04/21 03/06/22 03/06/22 History gabapentin 300 mg capsule 1 cap PO BEDTIME 03/06/22 03/06/22 03/05/22 History Physical Exam Vital Signs: Vital Signs: Last Vital Signs Temp 98.0 F 03/07/22 07:58 Pulse 104 H 03/07/22 07:58 Resp 18 03/07/22 07:58 BP 135/90 H 03/07/22 07:58 Pulse Ox 96 03/07/22 07:58 O2 Del Method 03/07/22 07:58 BMI result Body Mass Index 28.8 EXAM: GENERAL: The patient is thin, jaundiced VITAL SIGNS:see workflow HEENT: Nonicteric sclerae, PERRLA, EOMI. Oropharynx clear. Moist mucous membranes. Conjunctivae appear well perfused. No thyroid mass. CHEST: Chest wall is nontender. HEART: Regular rate and rhythm without murmurs. LUNGS: Clear to auscultation bilaterally. ABDOMEN: Soft, positive bowel sounds, tender epigastrium, no organomegaly.no flank tenderness SKIN: No rash, no excessive bruising, petechiae, or purpura. NEUROLOGIC: Cranial nerves II-XII intact without motor/sensory deficit. psych- nml affect Results Labs 03/07/22 05:52 03/07/22 05:52 Labs: Short CBC 03/07/22 Range/Units 05:52 WBC 10.7 (4.8-10.8) X10*3/uL Hgb 10.2 L (14.0-18.0) g/dl Hct 31.9 L (42.0-52.0) % Plt Count 182 (160-400) X10*3/uL BMP 03/07/22 05:52 Sodium 129 L Potassium 3.5 Chloride 96 Carbon Dioxide 22 BUN 12 Creatinine 0.67 Calcium 8.3 L Liver Function 03/06/22 03/07/22 Range/Units 21:29 05:52 Total Bilirubin 16.0 H (0.0-1.0) mg/dL Direct Bilirubin 11.3 H (0.0-0.5) mg/dL AST 192 H (5-37) U/L ALT 68 H (0-40) U/L Alkaline Phosphatase 1467 H (39-117) U/L Albumin 2.6 L (3.5-5.0) g/dL Imaging CT scan - abdomen: Attestation: I personally reviewed and interpreted this imaging study as follows: (multiple liver lesions noted, with duodenal mass in proximal duodenum, possible splenic met, lung mets ) Assessment and Plan (1) Lesion of liver: Status: Acute (2) Carcinoma of duodenum: Status: Acute (3) Obstructive jaundice due to malignant neoplasm: Status: Acute Plan 1/ Obstructive jaundice possibly from spread of tumour into the papilla vs sludge or debris or from parenchymal liver disease from metastatic neoplasia. MRCP may not be helpful per radiology due to presence of embolization coils in the same region. PLAN: 1/ US eval of CBD< if obstructed recommend PTC, ERCP unlikely to be successful due to friable tumour mass in duodenum, EUS is another option for further asses sment but will need transfer to tertiary center for that Time Spent With Patient Time: Total time managing care of this patient today ____ minutes. Procedures Date of Service Date of Service: 03/07/22
--- NOTE | 2022-03-07 12:37 | PM.HEMONCCN ---
Subjective - Subjective Chief complaint: CONSULT FOR: DUODENAL CARCINOMA. OBSTRUCTIVE JAUNDICE. Patient: known to practice within the last 3 years Consult date: 03/07/22 Requesting Physician: Marisabel Simpson. Primary Care Provider: Robert Webster III, MD Medical Summary: DIAGNOSIS: CARCINOMA OF THE DUODENUM. LIVER METASTASES. OBSTRUCTIVE JAUNDICE. HPI - Consult Narrative Reason for consult: Consult for: Obstructive jaundice. Duodenal carcinoma with liver Mets. Narrative: Aly Buck is a 52 year old gentleman, with history of metastatic duodenal adeno carcinoma s/p chemotherapy, who was referred from oncology due to elevated bilirubin. He had lab work done. His bilirubin was elevated to 15.1 from 2.2 ( on 02/27). He stated he has had abdominal pain the last 1 month which has been constant, nonradiating and progressive. He also has had associated nausea. He complained of new onset of pale colored stools and dark yellow urine. He denied fever, chills, chest discomfort, palpitations, shortness of breath. Admits to poor appetite and generalized weakness. In the ED, CT of chest and abdomen revealed: Multiple new lung nodules, Multiple liver lesions consistent with metastatic disease. [facility] Medical HistoryL: Duodenal adenocarcinoma Hypertension Left arm pain Liver masses Pulmonary nodule Family History: Other No family history of cancer Surgical History: History of colonoscopy History of endoscopy History of esophagogastroduodenoscopy (EGD) History of liver biopsy Social History: Household Members: Spouse and Children Housing: House Are you a primary hospice home care coordinator to a significant other at home: No Do you presently have visiting nurse or other home services: No Alcohol intake: never Patient Tobacco Use Status: Never used Tobacco Review of Systems - Constitutional Reports system reviewed and no additional complaints, except as documented, Reports fatigue, Reports lack of energy, Reports malaise, Reports weakness, Reports weight loss, Denies fever(s) - Eyes Reports system reviewed and no additional complaints, except as documented - ENT Reports system reviewed and no additional complaints, except as documented - Cardiovascular Reports system reviewed and no additional complaints, except as documented - Respiratory Reports no additional respiratory complaints - Gastrointestinal Reports system reviewed and no additional complaints, except as documented, Reports abdominal pain, Reports constipation, Reports cramping, Reports feeling full early, Reports dyspepsia, Reports heartburn - Genitourinary Genitourinary: Reports no additional male genitourinary complaints - Musculoskeletal Reports system reviewed and no additional complaints, except as documented - Integumentary/Breasts Skin/Breast: Reports no additional skin complaints - Neurologic Reports system reviewed and no additional complaints, except as documented - Psychiatric Reports system reviewed and no additional complaints, except as documented - Endocrine Reports no additional endocrine complaints - Hematologic/Lymphatic Reports system reviewed and no additional complaints, except as documented - Allergic/Immunologic Reports system reviewed and no additional complaints, except as documented Oncology Screenings - ECOG Performance Status ECOG Performance Status: 1 [facility] Medical History: Medical History (Last Reviewed 03/06/22 @ 20:51 by Conor Bauer MD) Duodenal adenocarcinoma Hypertension Left arm pain Liver masses Pulmonary nodule Functional capacity: independent ambulation Patient : No Family History: Family History (Last Reviewed 03/06/22 @ 20:51 by Conor Bauer MD) Other No family history of cancer Surgical History: Surgical History (Last Reviewed 03/06/22 @ 20:51 by Conor Bauer MD) History of colonoscopy History of endoscopy History of esophagogastroduodenoscopy (EGD) History of liver biopsy Social History: Social History (Last Reviewed 03/06/22 @ 20:51 by Conor Bauer MD) Living Situation History: Household Members: Spouse Household Members: Children Housing: House Are you a primary hospice home care coordinator to a significant other at home: No Do you presently have visiting nurse or other home services: No Tobacco History: Patient Tobacco Use Status: Never used Tobacco 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 Current occupational status: employed Home Medications and Allergies Current Medications: Current Medications Acetaminophen (Acetaminophen 325 Mg Tablet) 650 mg PO TID PRN PRN Reason: Pain, Mild Dicyclomine HCl (Dicyclomine Hcl 10 Mg Capsule) 10 mg PO TID [facility] Last Admin: 03/07/22 08:46 Dose: 10 mg Duloxetine HCl (Duloxetine Hcl 30 Mg Capsule.Dr) 30 mg PO DAILY STEFANIE Last Admin: 03/07/22 08:46 Dose: 30 mg Gabapentin (Gabapentin 300 Mg Capsule) 300 mg PO BEDTIME STEFANIE Last Admin: 03/06/22 22:10 Dose: 300 mg Hydrochlorothiazide (Hydrochlorothiazide 25 Mg Tablet) 25 mg PO DAILY [facility]; Protocol Last Admin: 03/07/22 08:46 Dose: 25 mg Morphine Sulfate (Morphine Sulfate 4 Mg/Ml Cartridge) 4 mg IVPUSH Q4H PRN; Protocol PRN Reason: Pain, Severe (Pain Scale 7-10) Last Admin: 03/07/22 08:46 Dose: 4 mg Omeprazole (Omeprazole 40 Mg Capsule.Dr) 40 mg PO DAILY@0630 [facility] Last Admin: 03/07/22 05:37 Dose: 40 mg Ondansetron HCl (Ondansetron Hcl 4 Mg/2 Ml Vial) 4 mg IVPUSH Q8H PRN PRN Reason: Nausea and Vomiting Last Admin: 03/07/22 00:53 Dose: 4 mg Pharmacy Consult (Consult Rx Perform Med Rec) 1 each MISCELLANE ONCE PRN PRN Reason: Consult order Sodium Chloride (0.9 % Sodium Chloride Flush 3 Ml Syringe) 3 ml IVFLUSH QSHIFT [facility] Last Admin: 03/07/22 08:47 Dose: 3 ml Home Medications Medication Instructions Recorded Confirmed Type acetaminophen 500 mg tablet 650 mg PO TID PRN Pain, Mild 01/25/21 03/06/22 History losartan 25 mg tablet 25 mg PO DAILY 03/04/21 03/06/22 History gabapentin 300 mg capsule 1 cap PO BEDTIME 03/06/22 03/06/22 History Allergies Allergy/AdvReac Type Severity Reaction Status Date / Time bee pollen [bee stings] Allergy Unknown Verified 01/09/22 09:52 Physical Exam Vital signs: Vital Signs Temp 98.0 F 03/07/22 07:58 Pulse 104 H 03/07/22 07:58 Resp 18 03/07/22 07:58 BP 135/90 H 03/07/22 07:58 Pulse Ox 96 03/07/22 07:58 O2 Del Method 03/07/22 07:58 Intake & Output 03/06/22 03/07/22 03/07/22 18:59 06:59 18:59 Intake Total 1000 / 1000 1000 / 1000 Balance 1000 / 1000 1000 / 1000 Intake: Intake, IV Amount 1000 / 1000 1000 / 1000 0.9 % Sodium Chloride 1,000 ml 1000 / 1000 1000 / 1000 @ 999 mls/hr IV .Q1H1M ONE Rx#: [id number] Other: Weight 91.2 kg Weight 91.2 kg - Constitutional Present: moderate distress - Routine HEENT Exam Head: Present: normal inspection Eye: Present: scleral icterus ENT: Present: mucous membranes moist - Routine Neck Exam Present: supple - Routine Respiratory Exam Present: CTAB - Routine Cardiovascular Exam Cardiovascular: Present: RRR, S1, S2 - Routine Abdominal Exam Present: organomegaly, soft, tenderness - Routine Extremities Exam Present: nontender - Routine Skin Exam Present: intact - Routine Neurological Exam Present: alert, oriented X3 - Detailed Neurological Exam: Coma Scale Eye Opening: Spontaneous (4) Verbal Response: Oriented (5) - Routine Psychiatric Exam Present: depressed Hem/Onc Consult Result - Labs CBC & Chem 7: 03/07/22 05:52 03/07/22 05:52 Labs: Short CBC 03/07/22 Range/Units 05:52 WBC 10.7 (4.8-10.8) X10*3/uL Hgb 10.2 L (14.0-18.0) g/dl Hct 31.9 L (42.0-52.0) % Plt Count 182 (160-400) X10*3/uL BMP 03/07/22 05:52 Sodium 129 L Potassium 3.5 Chloride 96 Carbon Dioxide 22 BUN 12 Creatinine 0.67 Calcium 8.3 L Liver Function 03/06/22 03/07/22 Range/Units 21:29 05:52 Total Bilirubin 16.0 H (0.0-1.0) mg/dL Direct Bilirubin 11.3 H (0.0-0.5) mg/dL AST 192 H (5-37) U/L ALT 68 H (0-40) U/L Alkaline Phosphatase 1467 H (39-117) U/L Albumin 2.6 L (3.5-5.0) g/dL Assessment and Plan Patient Active problem list reviewed?: Yes (1) Duodenal adenocarcinoma Problem details: w/ mets Status: Acute Assessment and plan: 52-year-old gentleman diagnosed with carcinoma the duodenum with liver Mets, 7 cm size back in December of 2020. He was treated with palliative chemotherapy with FOLFIRINOX x 3 cycles. Subsequently noted to have disease progression. ofelia referred him to [place] for a 2nd opinion to see if he would be eligible for any clinical trials in future. He saw Dr. Fitz Borden, chief of GI Oncology at [facility], on September 19. His recommendations: Hold bevacizumab on account of ongoing need for transfusions. Continue FOLFIRINOX therapy. Follow-up imaging after the 3rd cycle and then decide about further course of treatment. If responding then continue the current regimen. If not, other options include: Nap paclitaxel monotherapy: In 1 study patient has had 2 [place] is out of 30 patients. In the other 1 30% response rate and stable disease in 30% among 20 patients. With such limited data, best supportive care is a reasonable next option. However for a young fit person, gemcitabine and Abraxane at least has a lot of data on tolerability from pancreatic cancer literature in was the most commonly use regimen, 6 patients in the above study. At this point there are no clinical trials that fit his needs however but he was encouraged to call periodically to see what is available at that time. Alternatively, phase 1 trials may be an option. Oncopanel/NGS testing has been sent on his pathology from 01/25/21. It was recommended that his children discuss cancer screening with their PCPs at age 40. His tumor markers: CEA: 177. Ca 19/9: 3990. l re-staged him with imaging, on 10/26: Enlarged liver. No appreciable change in the multiple liver lesions. No appreciable change in the mass in the duodenum, small surrounding lymphadenopathy and stranding of the fat in the small bowel mesentery. Enlarged spleen. 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 Stable left renal cysts and question lower pole peripelvic cyst versus calyceal dilatation. Interval increase in size and number of bilateral pulmonary nodules. CEA 265. He had cycle 6 on 01/16. He had an upper endoscopy, on 02/02 , by Dr. Montes De Oca. It revealed: Patchy gastric erythema and erosions noted. Duodenal masks noted straddling the bulb and now into the pyloric outlet. Pathology revealed: Antral type chronic inactive gastritis. I had discussed the case with [facility]. The oncologist is of the same opinion as me, that since we do not have too many 3rd line options,. Meanwhile I had sent the liquid biopsy to see if there is any other actionable mutations. This was positive for an actionable mutation. The results were sent over to Dr. Alexander Urrutia, at [facility]. After reviewing the options, he was willing to go on the cliniical trial.. He completed the paperwork. Appointment is for 03/08/2022. In the interim the patient has developed obstructive jaundice. LFTs from 03/07: /192/68. It appears that the tumor mass in the duodenal is blocking the papilla Checked with GI and Radiology. They do not feel it feasible to have ERCP/stenting/ nor PTCA, for biliary drainage. Concern is that we have limited options here. PLAN: I have discussed the case with Dr. Alexander Echavarria, oncologist at [facility]. He feels there would be options there in terms of providing biliary drainage. Once his bilirubin comes down, he would be a candidate for the clinical trial, under the care of Dr. Montes. He will be going to the ER at [facility]. He will be admitted, overnight. Will then get scheduled for placement of the percutaneous drain by IR. Hopefully he will be a candidate for the clinical trial later. I wish him the best of luck. Thank you, Cc: Dr. Landon Webster. Dr. Alexander Echavarria. [facility]. - Time Spent With Patient Time Spent with Patient (in minutes): 30
--- NOTE | 2022-03-07 13:37 | PM.EVENT ---
Event Note Date of Service: 03/07/22 Event Note: pt with advanced metastatic duodenal cancer elevated bilirubin likely due to involvement of the ampulla with progressive cancer pt to be seen in [facility] tomorrow hospitalist and oncology - no consult needed for general surgery Time Spent With Patient Time: Total time managing care of this patient today ____ minutes.
--- NOTE | 2022-03-07 14:40 | PM.DS ---
DS: Providers Provider Date of Service: 03/07/22 Date of admission: 03/06/22 20:35 Primary care physician: Robert Webster III, MD Consults: 03/06/22 20:54 Consult to Hematology / Oncology Routine Consulting Provider: Maxi Berkowitz Reason for consultation: metastatic duodenal adenocarcinoma 03/06/22 20:56 Consult to General Surgery Routine Consulting Provider: Cresencio Hinds Reason for consultation: obstructive jaundice 03/07/22 09:31 Consult to Gastroenterology Routine Consulting Provider: Lexy Montes De Oca Reason for consultation: obstructive jaundice Has provider been notified: No DS: Diagnosis Discharge Diagnosis (1) Lesion of liver: Status: Acute (2) Carcinoma of duodenum: Status: Acute (3) Obstructive jaundice due to malignant neoplasm: Status: Acute DS: Summary Hospital Course Hospital Course: HP as per admitting provider This is a 52-year-old male with pertinent history of metastatic duodenal adeno carcinoma s/p chemotherapy, essential hypertension, gastroesophageal reflux disease who was sent from oncologist's office due to elevated bilirubin.? Patient got blood work at his oncologist's office and his bilirubin was elevated to 15.1 from 2.2 ( on 02/27) and he was sent to the ER for further evaluation. States he has ongoing abdominal pain the last 1 month which has been constant , nonradiating and progressive.? Also has associated nausea.? Complains of pale colored stools and yellowish urine.? Patient denies fever, chills, chest discomfort, palpitations, shortness of breath.? Admits poor appetite? And generalized weakness. In the emergency department, CT with multiple new lung nodules, multiple liver lesions consistent with metastatic disease . Obstructive jaundice AST 192/ALT 68/alk phos 1467 /total bilirubin 16.0/direct bilirubin 11.3 /INR 1.1 Hx of metastatic duodenal carcinoma s/p chemotherapy abominal pain over one month with associate nausea, pale stool and dark yellow urine -CURRENT THERAPY: XELOX plus Bevacizumab x5 cycles started 03/04.? FOLFIRINOX x6 cycles started 08/01. -Referred for clinical trial at [facility], apt 02/26/22 Therefore after discussing with Gastroenterology (Dr. Montes De Oca) and oncology (Dr. Berkowitz) the plan is to refer the patient to [facility] to follow-up with Dr. Alexander Echavarria, oncologist at [facility]. at this point the patient's condition warrants treatment at a tertiary care facility and has he was to follow up with the clinical trial in [place] it would make sense that he goes there for further workup and treatment of his obstructive jaundice. The patient is hemodynamically stable at this point and is very willing to go this evening. Abdominal and pelvic CT from 03/06/2022: CT/CT abdomen pelvis w IV con IMPRESSION: 1.? Multiple new lung nodules consistent with metastatic disease. 2.? Multiple liver lesions consistent with metastatic disease. The lesions have increased in size since the previous CT 10/26/2021. 3.? There is mild splenomegaly. There are wedge-shaped hypodense areas in the spleen suspicious for infarct versus metastatic disease. 4.? There is mild thickening of the second segment of the duodenum similar to previous study however evaluation is limited due to lack of oral contrast. 5.? There are small lymph nodes adjacent to the second and third segment of the duodenum and in the aortocaval region. 6.? Upper pole left renal cyst is stable. There is a 2 cm hypodensity in lower pole right kidney not well visualized on the previous study. Question solid lesion. 7. ? Appendicolith most likely with minimal fluid inferior to the cecum. No appendicitis suspected. Small amount of free fluid in the pelvis ?Fleischner guidelines were followed. Hypertension hold hydrochlorothiazide due to hyponatremia GERD Ppi Chronic normocytic anemia Hemoglobin above transfusion threshold Time Spent with Patient Time attestation: Total time managing care of this patient today ____ minutes. Discharge coordination time: Greater than 30 minutes Quality: Safe Use of Opioids Does Pt have an Active Cancer Diagnosis on the Problem List?: No Quality: Stroke Does the patient have a stroke diagnosis?: No Physical Exam Vital Signs: Vital Signs: Last Vital Signs Temp 98.0 F 03/07/22 07:58 Pulse 104 H 03/07/22 07:58 Resp 18 03/07/22 07:58 BP 135/90 H 03/07/22 07:58 Pulse Ox 96 03/07/22 07:58 O2 Del Method 03/07/22 07:58 BMI result Body Mass Index 28.8 Appearing in no acute distress head is normocephalic atraumatic eyes pupils are PERRLA sclera is icteric, skin jaundiced mouth throat mucous membranes are intact and moist neck is supple no lymphadenopathy, no JVD noted lung sounds are clear to auscultation heart regular rate rhythm, clear S1, S2 positive bowel sounds, abdomen is soft, nontender neuro patient is alert x3, no focal deficits DS: Data Data Completed and Pending Labs on day of discharge: Laboratory Results - last 24 hr 03/06/22 03/06/22 03/06/22 17:36 17:36 21:29 WBC RBC Hgb Hct MCV MCH MCHC RDW Plt Count MPV Immature Gran % (Auto) Neut % (Auto) Lymph % (Auto) [place] % (Auto) Eos % (Auto) Baso % (Auto) Lymph # (Auto) [place] # (Auto) Eos # (Auto) Baso # (Auto) Abs Immat Gran (auto) Absolute Neuts (auto) Absolute Nucleated RBC Nucleated RBC % (auto) PT 13.1 INR 1.1 APTT 32.6 Sodium Potassium Chloride Carbon Dioxide Anion Gap BUN Creatinine Estim Creat Clear Calc Estimated GFR Random Glucose Calcium Total Bilirubin Direct Bilirubin 11.3 H AST ALT Alkaline Phosphatase Total Protein Albumin COVID-19 (UMAIR) Negative COVID-19 Clin Com See Note 03/07/22 03/07/22 05:52 05:52 WBC 10.7 RBC 3.90 L Hgb 10.2 L Hct 31.9 L MCV 81.8 MCH 26.2 L MCHC 32.0 RDW 18.0 H Plt Count 182 MPV 11.1 Immature Gran % (Auto) 0.5 H Neut % (Auto) 80.1 H Lymph % (Auto) 7.2 L [place] % (Auto) 11.3 H Eos % (Auto) 0.6 Baso % (Auto) 0.3 Lymph # (Auto) 0.8 L [place] # (Auto) 1.2 Eos # (Auto) 0.1 Baso # (Auto) 0.0 Abs Immat Gran (auto) 0.05 H Absolute Neuts (auto) 8.6 H Absolute Nucleated RBC 0.000 Nucleated RBC % (auto) 0.0 PT INR APTT Sodium 129 L Potassium 3.5 Chloride 96 Carbon Dioxide 22 Anion Gap 15 BUN 12 Creatinine 0.67 Estim Creat Clear Calc 144.7 Estimated GFR > 60 Random Glucose 88 Calcium 8.3 L Total Bilirubin 16.0 H Direct Bilirubin AST 192 H ALT 68 H Alkaline Phosphatase 1467 H Total Protein 6.2 L Albumin 2.6 L COVID-19 (UMAIR) COVID-19 Clin Com Discharge Plan Discharge Anticipated Discharge Date/Time: 03/07/22 14:29 Patient Disposition: Home, Self-Care Discharge Diagnosis: Duodenal adeno carcinoma Obstructive jaundice Liver metastasis Referrals: Robert Webster III, MD [Primary Care Provider] - 1 Week Discharge Medications: Continued dicyclomine 10 mg capsule 10 mg PO TID Qty: 90 0RF gabapentin 300 mg capsule 1 cap PO BEDTIME losartan 25 mg Tablet 25 mg PO DAILY duloxetine 30 mg Capsule,Delayed Release(Dr/Ec) 30 mg PO DAILY Qty: 90 4RF oxycodone 5 mg Tablet 5 mg PO Q6H PRN (Reason: Breakthrough Pain, Moderate) Qty: 60 0RF acetaminophen 500 mg tablet 650 mg PO TID PRN (Reason: Pain, Mild) hydrochlorothiazide 25 mg tablet 1 tab PO DAILY omeprazole 40 mg capsule,delayed release(DR/EC) 40 mg PO DAILY Qty: 60 1RF Discharge Orders: Discharge Order (Routine); Ordered 03/07/22 Ordered By: Marisabel Simpson Diet: Advance to usual diet Activity on Discharge: As tolerated Stand Alone Forms: Patient Portal Discharge page Care Plan Goals: Follow up at tertiary care facility. Dr. Alexander Echavarria, oncology [facility] Concerns: Duodenal adenocarcinoma Obstructive jaundice Liver metastasis Plan of Treatment: Follow up at [facility] for further evaluation of obstructive jaundice with history of Duodenal adenocarcinoma with mets Currently following with [facility] oncology for treatment. Seen and evaluated by ,Dr. Alexander Echavarria, in [place] for 2nd opinion previously Assessment: See discharge summary
[2022-03-07] MEDS: iohexoL 350 MG/ML 100 ML INFUS..BTL IV (15:15)
--- NOTE | 2022-03-07 15:39 | MHC.CM.PN ---
PATIENT DC HOME - SELF CARE PRIOR TO CASE MANAGEMENT ASSESSMENT. PER REVIEW OF CHART, PATIENT HAS [facility] VISITS. FAMILY TO TRANSPORT PATIENT HOME
== END 2022-03-07 16:51 | disposition home or self-care (01) ==
LOC: HO.ED 20:33 → HO.EDOVER 20:42 → HO.S3 03-07 07:32
PROVIDERS: Admitting Provider Student in an Organized Health Care Education/Training Program; Emergency Provider Internal Medicine; PCP Internal Medicine; Visit Provider Nurse Practitioner Acute Care
DX: K83.1 Obstruction of bile duct (principal); C78.01 Secondary malignant neoplasm of right lung; C17.0 Malignant neoplasm of duodenum; D63.1 Anemia in chronic kidney disease; C78.7 Secondary malignant neoplasm of liver and intrahepatic bile duct; K21.9 Gastro-esophageal reflux disease without esophagitis; I10 Essential (primary) hypertension; Z20.822 Contact with and (suspected) exposure to COVID-19; Z79.899 Other long term (current) drug therapy
CPT/HCPCS: 36415; 71045; 74177; 74178; 80053; 82248; 85025; 85610; 85730; 87635; 99221; 99285; J2270; J2405; Q9967

== ENCOUNTER 2022-03-29 15:41 | Outpatient (REF) | payer OTHER, SELFPAY ==
--- NOTE | ~2022-03-29 | US_ITS ---
EXAMINATION: US VENOUS ULTRASOUND WITH DOPPLER LOWER EXTREMITY, RIGHT CLINICAL INFORMATION: Right leg pain. COMPARISON: None TECHNIQUE: Ultrasound of the deep veins is performed from the hip to the calf with compression sonography and color and pulse Doppler assessment. Spectral analysis with color-flow imaging is performed. FINDINGS: There is normal venous compression and respiratory variation and augmented flow. The visualized common femoral vein, superficial femoral vein, profunda femoral vein, popliteal vein, and the trifurcation region shows no evidence of deep venous thrombosis. The left common femoral vein is patent. No right popliteal cyst. Mild to moderate subcutaneous edema in the right calf. US/US venous duplex LE RT IMPRESSION: No evidence for deep venous thrombosis in the visualized veins of the right lower extremity.
== END 2022-03-29 15:42 | disposition home or self-care (01) ==
LOC: HO.US 15:41
PROVIDERS: Visit Provider Internal Medicine Medical Oncology
DX: I82.401 Acute embolism and thrombosis of unspecified deep veins of right lower extremity (principal)
CPT/HCPCS: 93971